=== PATIENT | female | born 1950 | race Caucasian/White ===

== ENCOUNTER → 2018-04-27 16:29 | Outpatient (CLI) | payer OTHER, SELFPAY ==
[2018-04-27 17:00] LABS: Bilirubin Negative (Negative); Blood Trace-intact (Negative); Clarity Clear; Glucose Negative (Negative); Ketones Negative (Negative); Leukocyte Esterase Trace (Negative); Nitrite Negative (Negative); Specific Gravity 1.025 (1.005-1.025); Urobilinogen 0.2 EU/dL (Up TO 0.2); pH 6.5 (5-8)
[2018-04-27 17:15] LABS: Bacteria Rare HPF (Negative); Casts Negative LPF (Negative); Crystals Negative HPF (Negative); Epithelial Cells Few HPF (Negative); Mucus Negative (Negative); Other Cells Few Transitional (Negative)
[2018-04-27 17:16] LABS: C & S Indicated? C&S Done As Ordered
== END ==
PROVIDERS: PCP Family Medicine; Visit Provider Nurse Practitioner Family
DX: R10.31 Right lower quadrant pain (principal); N13.5 Crossing vessel and stricture of ureter without hydronephrosis
CPT/HCPCS: 81003; 81015; 87086

== ENCOUNTER 2018-06-16 15:04 | Outpatient (REF) | payer OTHER, SELFPAY ==
[2018-06-16 20:43] LABS: HCT 35.7 % (36.0-46.0); HGB 11.7 g/dL (12.0-15.5); Mean Corp. HGB Concentration 32.8 g/dL (32.0-36.0); Mean Corpuscular Hemoglobin 32.8 pg (27.0-33.0); Mean Platelet Volume 10.3 fL (8.0-11.0); Platelet Count 287 x1000/uL (130-400); RBC 3.57 m/cumm (4.00-5.20); RBC Distribution Width 15.1 % (11.7-14.6); Reticulocyte 1.7 % (0.5-2.4)
[2018-06-16 21:03] LABS: Iron 48 ug/dL (50-175); Total Iron Binding Capacity 264 ug/dL (250-450); Transferrin Sat 18 % (15-50)
[2018-06-16 21:16] LABS: Ferritin 132 ng/mL (8-388)
== END 2018-06-16 15:24 ==
LOC: NCHCN 15:04
PROVIDERS: PCP Family Medicine; Visit Provider Family Medicine
DX: E61.1 Iron deficiency (principal)
CPT/HCPCS: 85027; 82728; 83540; 83550; 85045

== ENCOUNTER 2018-06-28 01:39 | Outpatient (RCR) | payer OTHER, SELFPAY ==
[2018-06-21] MEDS: SODIUM FER. GLUC./SUC. 125 MG in Normal Saline 100 ML 110 MG IVPB (11:27)
[2018-06-21] MEDS: Normal Saline Flush 10 ML SYR IVP (11:28)
[2018-06-28] MEDS: Normal Saline Flush 10 ML SYR IVP (10:24)
[2018-06-28] MEDS: SODIUM FER. GLUC./SUC. 125 MG in Normal Saline 100 ML 110 MG IVPB (10:24)
== END 2018-06-28 23:59 | disposition home or self-care (01) ==
LOC: INF 01:39
PROVIDERS: PCP Family Medicine; Visit Provider Internal Medicine
DX: D64.9 Anemia, unspecified (principal); E61.1 Iron deficiency
CPT/HCPCS: 96365; J3490

== ENCOUNTER 2018-07-05 01:32 | Outpatient (RCR) | payer OTHER, SELFPAY ==
[2018-07-05] MEDS: Normal Saline Flush 10 ML SYR IVP (10:31)
[2018-07-05] MEDS: SODIUM FER. GLUC./SUC. 125 MG in Normal Saline 100 ML 110 MG IVPB (10:31)
--- NOTE | 2018-07-05 11:55 | NUR.NOTE ---
Nursing Note: Pt with infiltration of Ferrilit towards end of infusion. Infusion discontinued. Site with swelling below iid site, a approx 3 small blisters above IID site. Pt reports no pain, no numbness or tingling. Pt was not aware that site was infiltrated. No redness or staining observed at site. Arm elevated and ice pack placed.
--- NOTE | 2018-07-05 12:15 | NUR.NOTE ---
PT HAS HAD ARM ELEVATED AND ICE APPLIED FOR ABOUT 45 MINS. PT CONTINUES TO DENY PAIN , NUMBNESS OR TINGLING. SITE HAS DECREASED IN EDEMA AND THE BLISTERS HAVE DECREASED. PT EDUCATED ON SYMPTOMS TO WATCH FOR AND WHEN TO SEEK MEDICAL CARE. ARM CIRCUMFRENCE ABOVE SITE 37 CM AND BELOW SITE 31 CM. RIGHT ARM FOR REFERENCE: UPPER 37CM LOWER 29 Nursing Note:
== END 2018-07-28 23:59 | disposition home or self-care (01) ==
LOC: INF 01:32
PROVIDERS: PCP Family Medicine
DX: D64.9 Anemia, unspecified (principal); E61.1 Iron deficiency
CPT/HCPCS: 96365; J3490

== ENCOUNTER 2018-09-04 00:16 | Outpatient (CLI) | payer OTHER, SELFPAY ==
--- NOTE | 2018-09-04 13:42 | DI.MAMMO_ITS ---
SYMPTOMS/DIAGNOSIS: PERSONAL H/O IN SITU NEOPLASM OF BREAST, Z86.000, BREAST CA, C50.919, SCREENING, Z12.31 MAMMOGRAM: Mammograms were interpreted according to the usual protocol including computer analysis with CAD system, tomosynthesis and C view imaging. Comparison with prior examinations. Breast density A. No suspicious masses or microcalcifications are seen. Post surgical changes are seen in the right breast. IMPRESSION: No evidence for malignancy. Yearly mammography is recommended. Category 2. The findings were discussed with the patient on the date of the examination. SA ASSESSMENT OF FINDINGS: Negative with benign findings. Category 2. Patient will receive a letter notifying them of these results. BI-RAD category A. The breasts are almost entirely fatty.
== END 2018-09-04 00:36 ==
PROVIDERS: PCP Family Medicine; Visit Provider Family Medicine
DX: C50.919 Malignant neoplasm of unspecified site of unspecified female breast (principal); Z12.31 Encounter for screening mammogram for malignant neoplasm of breast; Z98.890 Other specified postprocedural states
CPT/HCPCS: 77063; 77067

== ENCOUNTER 2018-10-09 18:08 | Emergency (ER) | payer OTHER, SELFPAY ==
[2018-10-09 18:13] VITALS: BP 205/80; PULSE 61; RESP 20; TEMP 36.8; O2SAT 97
--- NOTE | 2018-10-09 18:42 | DI.CT_ITS ---
SYMPTOM/DIAGNOSIS: LT MID/LLQ ABD PAIN, R/O DIVERTICULITIS VS SBO CT ABDOMEN AND PELVIS: Comparison examination is 11/05/16 The visualized lung bases are clear. The unenhanced liver, spleen, pancreas, gallbladder, bile ducts and adrenal glands are unremarkable. The patient is now status post right nephrectomy. There are fat density well circumscribed lesions in the region of the right renal fossa. These are likely post surgical. The left kidney is present. There is dilatation of the proximal renal collecting system to the level of what appears to be soft tissue in the retroperitoneum which may represent fibrosis. The ureter distally is of normal caliber. No filling defects are seen. There is soft tissue seen in the retroperitoneum extending from the level of the pelvic inlet inferiorly posterior to the rectum which likely represents fibrosis. There is mild thickening of the wall of the loops of small bowel in the left abdomen and an enteritis cannot be excluded. The remainder of the bowel shows no evidence of obstruction or inflammation. No findings to suggest an acute appendicitis are present. The aorta is of normal caliber. No significant abdominal or pelvic adenopathy, ascites or pneumoperitoneum is seen. Post surgical changes are seen in the subcutaneous tissues of the left abdominal wall. IMPRESSION: 1. Status post right nephrectomy. 2. Mild dilatation of the proximal left renal collecting system without evidence of stone. The dilatation appears to extend to the level of retroperitoneal fibrosis 3. Mild bowel wall thickening and loops of small bowel in the left abdomen and a mild enteritis should be considered.
--- NOTE | 2018-10-09 18:45 | ED.GENADUL_ITS ---
Discharge Plan Disposition Patient Disposition: HOME Condition: Stable Discharge Details Chief Complaint: Abd Prob Clinical Impression: Abdominal pain Primary Care Provider: Tory Puckett ED Provider: Cyn Flores Home Meds and New Rx's Prescriptions: New famotidine [Pepcid] 20 mg tablet 20 mg PO DAILY Qty: 14 RF: 0 No Action levothyroxine [Synthroid] 25 MCG tablet 50 mcg PO DAILY RF: 0 omeprazole 10 MG capsule,delayed release(DR/EC) 20 mg PO DAILY RF: 0 trazodone 150 MG tablet 150 mg PO DAILY RF: 0 polyethylene glycol 3350 [Miralax] 17 GM powder in packet 17 gm PO for colonscopy Qty: 1 RF: 0 clonidine HCl 0.1 MG tablet 0.1 mg PO HS RF: 0 methotrexate sodium (PF) 25 mg/mL Solution 50 mg IM QWEEK RF: 0 Baking Soda 1.2 tsp PO DAILY RF: 0 Discharge Instructions Instructions: Abdominal Pain (ED) Additional Instructions: Take Tylenol as needed and directed for pain. Take Pepcid daily as directed. Call your surgeon at [facility] tomorrow morning to schedule follow-up appointment for reevaluation for endoscopy if indicated for persistent pain worse with eating. Return immediately to the emergency department any worsening or new concerning symptoms. 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 Afebrile, normal heart rate. She has tenderness to palpation of her left lower quadrant, left mid and left upper quadrant area. Otherwise abdomen is soft, no rigidity or rebound. Differential diagnosis includes diverticulitis, small bowel obstruction, gastritis. He has no complaint of chest pain or shortness of breath and is mainly tender in the left lower quadrant extending up to left upper quadrant, so I do not see an indication for EKG or troponin. Will place an IV, labs, urinalysis, CT abdomen and give a dose of morphine and bolus IV fluids. 1930 --labs reviewed and note a normal white blood cell count, electrolytes. Creatinine 1.38, GFR 37, patient is on methotrexate, this is improved compared to previous. Will change from CT with IV contrast to oral contrast only. 2200 --CT negative for acute findings. It notes mild left hydronephrosis and proximal hydroureter likely due to the retroperitoneal fibrosis but no other acute findings. Urinalysis notes 0-2 WBCs and trace leukocyte esterase, urine culture sent. Patient feels better and feels good to go home. Patient states her pain was much worse here after drinking the oral contrast. She states in general the pain is worse with eating. This appears more consistent likely with an ulcer. She admits to improvement of pain now. Patient states she has seen surgery at [facility] in the past. She is also given referral for surgery here. She is instructed to call them for reevaluation for possible endoscopy. She is instructed return here with any concerns. Medical Records Medical records reviewed: Yes I reviewed the patient's medical records. Imaging Data Radiologic Study: Radiologist's impression: CT ABD PELVIS WO CONTRAST 11/05/2016 6:56 PM FINDINGS: Lower thorax: Bibasilar atelectasis. No consolidation. No pleural effusion. ABDOMEN: Liver: Unremarkable. No mass. Gallbladder and bile ducts: Unremarkable. No calcified stones. No ductal dilation. Pancreas: Unremarkable. No ductal dilation. Spleen: Unremarkable.No splenomegaly. Adrenals: Unremarkable. No mass. Kidneys and ureters: Mild left hydronephrosis and hydroureter to the L4-5 level where there is a band of retroperitoneal fibrosis. No stone or mass. Right nephrectomy. Nonspecific fat density masses with surrounding attenuation in the right retroperitoneal space (axial series 2 images 39, 47 and 57), presumably represent postsurgical changes. Stomach and bowel: Cecal and distal ileal adhesions back to the S1 level which is new since the nephrectomy and likely represents postsurgical adhesions. No evidence of bowel wall thickening, inflammation, obstruction or perforation. Appendix: No evidence of appendicitis. PELVIS: Bladder: Unremarkable as visualized. Reproductive: Unremarkable as visualized. ABDOMEN and PELVIS: Intraperitoneal space: No free air. No significant fluid collection. Bones/joints: No acute bony abnormality. Redemonstrated L4-5 posterior mechanical fusion with disc spacer. Soft tissues: Unremarkable. Vasculature: Mild aortoiliac wall calcifications. No abdominal aortic aneurysm. Lymph nodes: Unremarkable. No enlarged lymph nodes. IMPRESSION: 1. Mild left hydronephrosis and proximal hydroureter which appears to be due to the retroperitoneal fibrosis. 2. Right nephrectomy. Lab Data Lab results reviewed: Yes I reviewed the patient's lab results. 10/09/18 20:15 Urine - Reflex from Ua Urine Culture - Pending Laboratory Tests Range/Units 10/09/18 10/09/18 10/09/18 18:20 18:20 20:15 WBC (4.4-10.8) k/cumm 7.58 RBC (4.00-5.20) m/cumm 3.60 L Hgb (12.0-15.5) g/dL 11.9 L Hct (36.0-46.0) % 36.8 MCV (80-95) fL 102.2 H MCH (27.0-33.0) pg 33.1 H MCHC (32.0-36.0) g/dL 32.3 RDW (11.7-14.6) % 13.4 Plt Count (130-400) x1000/uL 313 MPV (8.0-11.0) fL 9.8 Immature Gran % 0.1 Neutrophils % 68.9 Lymphocytes % 24.4 Monocytes % 4.6 Eosinophils % 1.5 Basophils % 0.5 Absolute Neutrophils (1.2-6.7) k/cumm 5.22 Absolute Lymphocytes (1.2-3.4) k/cumm 1.85 Absolute Monocytes (0.11-0.7) k/cumm 0.35 Absolute Eosinophils (0.0-0.7) k/cumm 0.11 Absolute Basophils (0.0-0.2) k/cumm 0.04 Sodium (136-145) mmol/L 140 Potassium (3.5-5.1) mmol/L 3.9 Chloride (98-107) mmol/L 101 Carbon Dioxide (21.0-32.0) mmol/L 28.4 Anion Gap (3-11) mmol/L 10.6 BUN (7-18) mg/dL 18 Creatinine (0.55-1.02) mg/dL 1.38 H Estimated GFR/1.73 m2 (mL/min/1.73m2) 37.91 Glucose (70-100) mg/dL 89 Calcium (8.5-10.1) mg/dL 9.7 Total Bilirubin (0.2-1.0) mg/dL 0.4 AST (15-37) U/L 13 L ALT (12-78) U/L 15 Alkaline Phosphatase (46-116) U/L 79 Total Protein (6.4-8.2) g/dL 8.3 H Albumin (3.4-5.0) g/dL 3.9 Lipase (73-393) U/L 69 L Urine Color (Yellow) Yellow Urine Clarity Clear Urine pH (5-8) 7.5 Ur Specific Marshall (1.005-1.025) 1.010 Urine Protein (Negative) mg/dL Negative Urine Ketones (Negative) mg/dL Negative Urine Blood (Negative) Negative Urine Nitrite (Negative) Negative Urine Bilirubin (Negative) Negative Urine Urobilinogen (Up TO 0.2) EU/dL 0.2 Ur Leukocyte Esterase (Negative) Trace H Urine RBC (0-2) Negative Urine WBC (0-5) HPF 0-2 Ur Epithelial Cells (Negative) HPF Negative Urine Crystals Not Applicable Urine Bacteria (Negative) HPF Negative Urine Mucus Not Applicable Ur Culture Indicated? Yes Urine Glucose (Negative) mg/dL Negative HPI General Mode of arrival: ambulatory . Date/Time Provider Initiated Documentation: 10/09/18 18:19 . Limitations to Documentation: no limitations . Information obtained by: patient . HPI Narrative: Patient is a 68-year-old female who presents to the ED with a complaint of left lower quadrant abdominal pain for the past 4 days. Patient states the pain is intermittent, twisting, 10/10 at its worst and currently 4/10. She denies any radiation of pain. She states the pain is worse with coffee or food but better with nothing. She admits to some nausea but denies any vomiting, diarrhea, urinary symptoms, chest pain, shortness of breath, recent travel, recent antibiotics or sick contacts. She states she has a history of chronic constipation and that her last bowel movement was yesterday and small denies any bleeding. Patient was seen at the primary care doctor's office prior to this today and was sent here for evaluation for possible diverticulitis. Related Data Home Medications Medication Instructions Recorded Confirmed levothyroxine [Synthroid] 50 mcg PO DAILY tab-cap 11/01/16 10/09/18 omeprazole 20 mg PO DAILY tab-cap 11/01/16 10/09/18 trazodone 150 mg PO DAILY tab-cap 11/01/16 10/09/18 polyethylene glycol 3350 [Miralax] 17 gm PO for colonscopy #1 gm 11/02/16 10/09/18 clonidine HCl 0.1 mg PO HS 03/10/17 10/09/18 Baking Soda 1.2 tsp PO DAILY 10/09/18 10/09/18 famotidine [Pepcid] 20 mg PO DAILY #14 tab 10/09/18 methotrexate sodium (PF) 50 mg IM QWEEK 10/09/18 10/09/18 Previous Rx's Medication Instructions Recorded famotidine [Pepcid] 20 mg PO DAILY #14 tab 10/09/18 Allergies Allergy/AdvReac Type Severity Reaction Status Date / Time erythromycin base Allergy Intermediate facial Unverified 10/09/18 18:16 swelling tetracycline Allergy Intermediate facial Unverified 10/09/18 18:16 swelling oxycodone AdvReac Nausea Unverified 10/09/18 18:16 General Stated Complaint: Abd Prob MAKAYLA: 3 Review of Systems Review of Systems All systems reviewed & are unremarkable except as noted in HPI and below Constitutional Reports as per HPI, Denies chills and Denies fever(s) Eyes Denies blurry vision ENT Denies dizziness, Denies sore throat and Denies throat swelling Cardiovascular Denies chest pain and Denies dyspnea Respiratory Denies cough and Denies dyspnea Gastrointestinal Reports abdominal pain, Reports constipation, Denies diarrhea, Reports nausea and Denies vomiting Genitourinary Denies hematuria and Denies dysuria Musculoskeletal Denies back pain and Denies numbness Integumentary/Breasts Denies lesions and Denies rash Neurologic Denies dizziness, Denies focal weakness and Denies numbness Allergic/Immunologic Denies throat swelling [facility] Medical History Retroperitoneal fibrosis (Acute) Breast cancer Constipation HTN (hypertension) Hypothyroidism Surgical History History of back surgery (Acute) History of nephrectomy (Acute) section Extraction of cataract Hx of mastectomy low back fusion right breast removed Family History Brother Colon cancer Grandmother No problems noted. Social History Smoking and Tabacco status: Never alcohol intake: never substance use type: does not use Exam Const General: cooperative, healthy appearing and no acute distress HENMT Head: normal to inspection Face and sinus: normal facial exam Eyes General: appearance normal, both eyes and all related structures EOM: EOM intact bilaterally Neck Neck: normal visual inspection and No submandibular swelling Lymphatic: no lymphadenopathy noted Chest Chest: normal inspection of the chest and no tenderness Resp Effort & Inspection: normal respiratory effort and able to speak in complete sentences Auscultation: clear to auscultation bilaterally Cardio Rate: regular rate Rhythm: regular rhythm GI Inspection: normal to inspection Palpation: soft, not firm, not rigid and tender (LLQ>L mid abdomen> LUQ) Auscultation: normal bowel sounds Back/Spine/Pelvis Back: no CVA tenderness Skin General skin exam: no rashes or lesions noted Neuro General: alert, awake and oriented x3 Cognition: normal cognition Speech: speech normal Motor: muscle tone normal throughout Sensory Exam: no sensory deficits noted Extrem General: normal to inspection, full ROM, normal capillary refill, no calf tenderness bilaterally and no edema Psych Appearance: grossly normal Mental Status: mental status grossly normal Speech and Movement: speech and movement normal Affect: normal affect Course Vital Signs Temperature 98.2 F 10/09/18 18:13 Pulse 61 10/09/18 18:13 Respiratory Rate 20 10/09/18 18:13 Blood Pressure 205/80 H 10/09/18 18:13 Pulse Oximetry 97 10/09/18 18:13 Temperature 98.2 F 10/09/18 18:13 Temperature Source Temporal Artery Scan 10/09/18 18:13 Pulse 61 10/09/18 18:13 Respiratory Rate 20 10/09/18 18:13 Blood Pressure 205/80 H 10/09/18 18:13 Pulse Oximetry 97 10/09/18 18:13 Pain Level 5 10/09/18 18:25
[2018-10-09 19:08] LABS: Abs Immature Grans 0.01 k/cumm (0.0-0.09); Absolute Basophil Count 0.04 k/cumm (0.0-0.2); Absolute Eosinophil Count 0.11 k/cumm (0.0-0.7); Absolute Lymphocyte Count 1.85 k/cumm (1.2-3.4); Absolute Monocyte Count 0.35 k/cumm (0.11-0.7); Absolute Neutrophil Count 5.22 k/cumm (1.2-6.7); Basophils % 0.5; Eosinophils % 1.5; HCT 36.8 % (36.0-46.0); HGB 11.9 g/dL (12.0-15.5); Immature Grans % 0.1; Lymphocytes % 24.4; Mean Corp. HGB Concentration 32.3 g/dL (32.0-36.0); Mean Corpuscular Hemoglobin 33.1 pg (27.0-33.0); Mean Corpuscular Volume 102.2 fL (80-95); Mean Platelet Volume 9.8 fL (8.0-11.0); Monocytes % 4.6; Neutrophils % 68.9; Platelet Count 313 x1000/uL (130-400); RBC Distribution Width 13.4 % (11.7-14.6); White Blood Cell Count 7.58 k/cumm (4.4-10.8)
[2018-10-09 19:20] LABS: ALT 15 U/L (12-78); AST 13 U/L (15-37); Albumin 3.9 g/dL (3.4-5.0); Alkaline Phosphatase 79 U/L (46-116); Anion Gap 10.6 mmol/L (3-11); BUN 18 mg/dL (7-18); Bilirubin, Total 0.4 mg/dL (0.2-1.0); CO2 28.4 mmol/L (21.0-32.0); CREATININE 1.38 mg/dL (0.55-1.02); Chloride 101 mmol/L (98-107); Estimated GFR 37.91 (mL/min/1.73m2); Glucose 89 mg/dL (70-100); Lipase 69 U/L (73-393); Potassium 3.9 mmol/L (3.5-5.1); Sodium 140 mmol/L (136-145); Total Protein 8.3 g/dL (6.4-8.2)
[2018-10-09 19:28] LABS: Calcium 9.7 mg/dL (8.5-10.1)
[2018-10-09] MEDS: Normal Saline 1,000 ML 1000 ML IV (19:28)
[2018-10-09] MEDS: MORPHine 10 MG/ML VIAL 2 MG IVP (19:28)
[2018-10-09] MEDS: MORPHine 10 MG/ML VIAL 4 MG IVP (20:08)
[2018-10-09] MEDS: Breeza Beverage 473 ML BTL PO ×2 (20:47→20:48)
[2018-10-09] MEDS: HYDROmorphone 2 MG/ML VIAL 0.5 MG IV (20:47)
[2018-10-09] MEDS: Omnipaque 350 MG/ML 50 ML BTL PO (20:48)
[2018-10-09] MEDS: FAMOTIDINE 20 MG/50 ML BAG 200 MG IVPB (21:30)
--- NOTE | 2018-10-09 21:48 | DI.VRAD_ITS ---
EXAM: CT Abdomen and Pelvis Without Contrast EXAM DATE/TIME: 10/09/2018 7:38 PM CLINICAL HISTORY: 68 years old, female; Pain; Abdominal pain; Generalized; Prior surgery; Surgery date: 6+ months; Surgery type: Mastectomy 15 years ago, back surgery 5 years ago, r nephrectomy 06/2018; Patient HX: Severe cramping and abdominal pain, HX of retroperitoneal fibrosis TECHNIQUE: Axial computed tomography images of the abdomen and pelvis without contrast. All CT scans at this facility use at least one of these dose optimization techniques: automated exposure control; mA and/or kV adjustment per patient size (includes targeted exams where dose is matched to clinical indication); or iterative reconstruction. Coronal and sagittal reformatted images were created and reviewed. COMPARISON: CT ABD PELVIS WO CONTRAST 11/05/2016 6:56 PM FINDINGS: Lower thorax: Bibasilar atelectasis. No consolidation. No pleural effusion. ABDOMEN: Liver: Unremarkable. No mass. Gallbladder and bile ducts: Unremarkable. No calcified stones. No ductal dilation. Pancreas: Unremarkable. No ductal dilation. Spleen: Unremarkable.No splenomegaly. Adrenals: Unremarkable. No mass. Kidneys and ureters: Mild left hydronephrosis and hydroureter to the L4-5 level where there is a band of retroperitoneal fibrosis. No stone or mass. Right nephrectomy. Nonspecific fat density masses with surrounding attenuation in the right retroperitoneal space (axial series 2 images 39, 47 and 57), presumably represent postsurgical changes. Stomach and bowel: Cecal and distal ileal adhesions back to the S1 level which is new since the nephrectomy and likely represents postsurgical adhesions. No evidence of bowel wall thickening, inflammation, obstruction or perforation. Appendix: No evidence of appendicitis. PELVIS: Bladder: Unremarkable as visualized. Reproductive: Unremarkable as visualized. ABDOMEN and PELVIS: Intraperitoneal space: No free air. No significant fluid collection. Bones/joints: No acute bony abnormality. Redemonstrated L4-5 posterior mechanical fusion with disc spacer. Soft tissues: Unremarkable. Vasculature: Mild aortoiliac wall calcifications. No abdominal aortic aneurysm. Lymph nodes: Unremarkable. No enlarged lymph nodes. IMPRESSION: 1. Mild left hydronephrosis and proximal hydroureter which appears to be due to the retroperitoneal fibrosis. 2. Right nephrectomy. Dictated and Authenticated by: Veronica Michelle MD. Ordering:LOLA Addison MD
[2018-10-09 22:01] LABS: Bilirubin Negative (Negative); Blood Negative (Negative); Clarity Clear; Glucose Negative (Negative); Ketones Negative (Negative); Leukocyte Esterase Trace (Negative); Nitrite Negative (Negative); Urobilinogen 0.2 EU/dL (Up TO 0.2); pH 7.5 (5-8)
[2018-10-09 22:16] LABS: Bacteria Negative HPF (Negative); C & S Indicated? Yes; Epithelial Cells Negative HPF (Negative); RBC Negative (0-2); WBC 0-2 HPF (0-5)
== END 2018-10-09 22:50 | disposition home or self-care (01) ==
PROVIDERS: Emergency Provider Physician Assistant; PCP Family Medicine
DX: R10.32 Left lower quadrant pain (principal); N13.39 Other hydronephrosis; N13.4 Hydroureter; Z90.5 Acquired absence of kidney
CPT/HCPCS: 80053; 83690; 96361; 96365; 96375; 96376; 99285; 74176; 81003; 81015; 85025; 87086; 99284; J2270; Q9967

== ENCOUNTER 2018-10-30 15:15 | Outpatient (CLI) | payer OTHER, SELFPAY ==
[2018-10-30 15:34] LABS: Abs Immature Grans 0.01 k/cumm (0.0-0.09); Absolute Basophil Count 0.05 k/cumm (0.0-0.2); Absolute Eosinophil Count 0.07 k/cumm (0.0-0.7); Absolute Lymphocyte Count 1.64 k/cumm (1.2-3.4); Absolute Neutrophil Count 5.54 k/cumm (1.2-6.7); Basophils % 0.7; Eosinophils % 0.9; HCT 35.2 % (36.0-46.0); HGB 11.9 g/dL (12.0-15.5); Immature Grans % 0.1; Lymphocytes % 21.8; Mean Corp. HGB Concentration 33.8 g/dL (32.0-36.0); Mean Corpuscular Hemoglobin 33.8 pg (27.0-33.0); Mean Platelet Volume 9.3 fL (8.0-11.0); Monocytes % 2.7; Neutrophils % 73.8; Platelet Count 282 x1000/uL (130-400); RBC 3.52 m/cumm (4.00-5.20); RBC Distribution Width 13.4 % (11.7-14.6); White Blood Cell Count 7.51 k/cumm (4.4-10.8)
[2018-10-30 16:42] LABS: ESR 61 MM/HR (0-30)
[2018-10-30 16:49] LABS: ALT 16 U/L (12-78); AST 18 U/L (15-37); Alkaline Phosphatase 90 U/L (46-116); Anion Gap 10.2 mmol/L (3-11); BUN 24 mg/dL (7-18); Bilirubin, Total 0.4 mg/dL (0.2-1.0); C-Reactive Protein 1.96 mg/dL (0.0-0.3); CO2 26.8 mmol/L (21.0-32.0); CREATININE 1.43 mg/dL (0.55-1.02); Calcium 9.1 mg/dL (8.5-10.1); Chloride 102 mmol/L (98-107); Estimated GFR 36.38 (mL/min/1.73m2); Glucose 89 mg/dL (70-100); Potassium 4.4 mmol/L (3.5-5.1); Sodium 139 mmol/L (136-145); Total Protein 7.4 g/dL (6.4-8.2)
== END 2018-10-30 15:35 ==
PROVIDERS: PCP Family Medicine; Visit Provider Internal Medicine Rheumatology
DX: N13.5 Crossing vessel and stricture of ureter without hydronephrosis (principal); N18.3 Chronic kidney disease, stage 3 (moderate); M35.00 Sjogren syndrome, unspecified
CPT/HCPCS: 36415; 80053; 85652; 85025; 86140

== ENCOUNTER 2019-03-16 10:10 | Outpatient (CLI) | payer OTHER, SELFPAY ==
[2019-03-16 13:06] LABS: Albumin 4.1 g/dL (3.4-5.0); Anion Gap 13.3 mmol/L (3-11); BUN 24 mg/dL (7-18); CO2 21.7 mmol/L (21.0-32.0); CREATININE 1.67 mg/dL (0.55-1.02); Calcium 9.3 mg/dL (8.5-10.1); Chloride 103 mmol/L (98-107); Estimated GFR 30.42 (mL/min/1.73m2); Glucose 88 mg/dL (70-100); PHOSPHORUS 3.6 mg/dL (2.6-4.7); Potassium 4.7 mmol/L (3.5-5.1); Sodium 138 mmol/L (136-145)
== END 2019-03-16 10:30 ==
PROVIDERS: PCP Family Medicine; Visit Provider Internal Medicine Rheumatology
DX: N13.5 Crossing vessel and stricture of ureter without hydronephrosis (principal); M35.00 Sjogren syndrome, unspecified
CPT/HCPCS: 36415; 80069

== ENCOUNTER 2019-10-10 14:10 | Outpatient (REF) | payer OTHER, SELFPAY ==
[2019-10-10 21:51] LABS: HCT 37.6 % (36.0-46.0); HGB 12.7 g/dL (12.0-15.5); Mean Corp. HGB Concentration 33.8 g/dL (32.0-36.0); Mean Corpuscular Hemoglobin 34.1 pg (27.0-33.0); Mean Corpuscular Volume 101.1 fL (80-95); Mean Platelet Volume 9.5 fL (8.0-11.0); Platelet Count 352 x1000/uL (130-400); RBC 3.72 m/cumm (4.00-5.20); RBC Distribution Width 15.4 % (11.7-14.6); White Blood Cell Count 13.48 k/cumm (4.4-10.8)
[2019-10-10 22:06] LABS: ALT 22 U/L (14-59); AST 18 U/L (15-37); Alkaline Phosphatase 64 U/L (46-116); Anion Gap 17.6 mmol/L (3-11); BUN 24 mg/dL (7-18); Bilirubin, Total 0.4 mg/dL (0.2-1.0); C-Reactive Protein 1.82 mg/dL (0.0-0.3); CO2 19.4 mmol/L (21.0-32.0); CREATININE 1.58 mg/dL (0.55-1.02); Calcium 8.9 mg/dL (8.5-10.1); Chloride 103 mmol/L (98-107); Estimated GFR 32.33 (mL/min/1.73m2); Glucose 118 mg/dL (74-106); NT-proBNP 307 pg/mL (<300); Potassium 4.2 mmol/L (3.5-5.1); Sodium 140 mmol/L (136-145); Total Protein 7.5 g/dL (6.4-8.2)
[2019-10-10 22:27] LABS: ESR 43 mm/hr (0-30)
[2019-10-11 08:30] LABS: Abs Immature Grans 0.18 k/cumm (0.0-0.09); Absolute Basophil Count 0.02 k/cumm (0.0-0.2); Absolute Lymphocyte Count 1.06 k/cumm (1.2-3.4); Absolute Monocyte Count 0.18 k/cumm (0.11-0.7); Absolute Neutrophil Count 12.07 k/cumm (1.2-6.7); Basophils % 0.1; Immature Grans % 1.3 %; Lymphocytes % 7.8; Monocytes % 1.3; Neutrophils % 89.5
== END 2019-10-10 14:30 ==
LOC: NCHCN 14:10
PROVIDERS: PCP Family Medicine; Visit Provider Family Medicine
DX: E61.1 Iron deficiency (principal); N13.5 Crossing vessel and stricture of ureter without hydronephrosis; R06.02 Shortness of breath; R06.2 Wheezing; J06.9 Acute upper respiratory infection, unspecified
CPT/HCPCS: 80053; 85027; 85652; 83880; 85007; 86140

== ENCOUNTER 2019-10-18 00:38 | Outpatient (CLI) | payer OTHER, SELFPAY ==
--- NOTE | 2019-10-18 | DI.MAMMO_ITS ---
EXAM: MG MAMMO SCREENING 60 MIN DUR CLINICAL HISTORY: PERSONAL H/O BREAST CA, Z86.00, SCREENING TECHNIQUE: Mammograms were interpreted according to the usual protocol including computer analysis w [employer] CAD system, tomosynthesis and C-view imaging. COMPARISON: 2016 through 2018. FINDINGS: The breasts are composed of mainly fatty density , Breast Density category A. The patient is status p ost right breast reconstructive surgery. A vascular clip as well as a coarse calcification are again noted. No suspicious masses or suspicious microcalcifications are seen. No skin thickening or abnormal axillary lymph nodes are seen. There has been no significant change from prior exams. IMPRESSION: BIRADS Category 2, negative mammogram with benign findings. Yearly screening mammography is recommen ded. Breast density category A.
== END 2019-10-18 00:58 ==
PROVIDERS: PCP Family Medicine; Visit Provider Family Medicine
DX: Z85.3 Personal history of malignant neoplasm of breast (principal); Z90.11 Acquired absence of right breast and nipple; Z12.31 Encounter for screening mammogram for malignant neoplasm of breast
CPT/HCPCS: 77063; 77067

== ENCOUNTER 2019-11-05 12:32 | Outpatient (CLI) | payer OTHER, SELFPAY ==
[2019-11-05 14:24] LABS: Abs Immature Grans 0.06 k/cumm (0.0-0.09); Absolute Basophil Count 0.01 k/cumm (0.0-0.2); Absolute Lymphocyte Count 0.59 k/cumm (1.2-3.4); Absolute Monocyte Count 0.25 k/cumm (0.11-0.7); Basophils % 0.1; ESR 9 mm/hr (0-30); HCT 38.6 % (36.0-46.0); Immature Grans % 0.5 %; Lymphocytes % 4.6; Mean Corp. HGB Concentration 33.7 g/dL (32.0-36.0); Mean Corpuscular Hemoglobin 34.4 pg (27.0-33.0); Mean Corpuscular Volume 102.1 fL (80-95); Mean Platelet Volume 9.5 fL (8.0-11.0); Neutrophils % 92.8; Platelet Count 267 x1000/uL (130-400); RBC 3.78 m/cumm (4.00-5.20); RBC Distribution Width 15.8 % (11.7-14.6); White Blood Cell Count 12.72 k/cumm (4.4-10.8)
[2019-11-05 14:41] LABS: ALT 24 U/L (14-59); AST 14 U/L (15-37); Albumin 3.7 g/dL (3.4-5.0); Alkaline Phosphatase 54 U/L (46-116); Anion Gap 13.9 mmol/L (3-11); BUN 46 mg/dL (7-18); Bilirubin, Total 0.4 mg/dL (0.2-1.0); C-Reactive Protein 0.06 mg/dL (0.0-0.3); CO2 21.1 mmol/L (21.0-32.0); CREATININE 1.94 mg/dL (0.55-1.02); Calcium 8.8 mg/dL (8.5-10.1); Chloride 101 mmol/L (98-107); Estimated GFR 25.51 (mL/min/1.73m2); Glucose 112 mg/dL (74-106); Potassium 4.4 mmol/L (3.5-5.1); Sodium 136 mmol/L (136-145); Total Protein 6.6 g/dL (6.4-8.2)
== END 2019-11-05 12:52 ==
PROVIDERS: PCP Family Medicine; Visit Provider Internal Medicine Rheumatology
DX: M35.00 Sjogren syndrome, unspecified (principal); N13.5 Crossing vessel and stricture of ureter without hydronephrosis; Z79.899 Other long term (current) drug therapy
CPT/HCPCS: 36415; 80053; 85652; 85025; 86140

== ENCOUNTER 2019-11-23 14:22 | Outpatient (REF) | payer OTHER, SELFPAY ==
[2019-11-26 10:52] LABS: HSV 1 DNA Result Negative (Negative); HSV 2 DNA Result Positive (Negative)
== END 2019-11-23 14:42 ==
LOC: NCHCN 14:22
PROVIDERS: PCP Family Medicine; Visit Provider Nurse Practitioner Family
DX: Z11.59 Encounter for screening for other viral diseases (principal)
CPT/HCPCS: 87529

== ENCOUNTER 2019-11-29 02:25 | Outpatient (CLI) | payer OTHER, SELFPAY ==
[2019-11-29 17:02] LABS: Bilirubin Negative (Negative); Blood Trace-intact (Negative); Clarity Clear (Clear); Glucose Negative (Negative); Ketones Negative (Negative); Leukocyte Esterase Small (Negative); Nitrite Negative (Negative); Urobilinogen 0.2 EU/dL (Up TO 0.2); pH 6.5 (5-8)
[2019-11-29 17:17] LABS: Bacteria Negative HPF (Negative); C & S Indicated? Yes; Casts Negative LPF (Negative); Crystals Negative HPF (Negative); Epithelial Cells Rare HPF (Negative); Mucus Negative (Negative); Other Cells Rare Renal (Negative); RBC Negative HPF (0-2)
[2019-11-29 18:37] LABS: ALT 27 U/L (14-59); AST 18 U/L (15-37); Albumin 3.7 g/dL (3.4-5.0); Alkaline Phosphatase 52 U/L (46-116); Anion Gap 12.8 mmol/L (3-11); BUN 33 mg/dL (7-18); Bilirubin, Total 0.4 mg/dL (0.2-1.0); CO2 21.2 mmol/L (21.0-32.0); CREATININE 1.54 mg/dL (0.55-1.02); Calcium 8.9 mg/dL (8.5-10.1); Chloride 102 mmol/L (98-107); Glucose 117 mg/dL (74-106); Potassium 4.6 mmol/L (3.5-5.1); Sodium 136 mmol/L (136-145); TSH 1.26 uIU/mL (0.36-3.74); Total Protein 7.1 g/dL (6.4-8.2)
== END 2019-11-29 02:45 ==
PROVIDERS: PCP Family Medicine; Visit Provider Internal Medicine Rheumatology
DX: N13.30 Unspecified hydronephrosis (principal); N26.1 Atrophy of kidney (terminal); N18.3 Chronic kidney disease, stage 3 (moderate); Z79.899 Other long term (current) drug therapy
CPT/HCPCS: 36415; 80053; 81003; 81015; 84443; 87086

== ENCOUNTER 2019-12-18 00:56 | Outpatient (RCR) | payer OTHER, SELFPAY ==
[2019-12-18] VITALS (9 sets, daily range): BP systolic 113–144; BP diastolic 69–85; PULSE 103–123; RESP 18–21; TEMP 35.7–37.2; O2SAT 94–99
[2019-12-18] MEDS: Normal Saline Flush 10 ML SYR IVP (09:13)
[2019-12-18] MEDS: methylPREDNISolone SUCC 125 MG VIAL 100 MG IVP (09:14)
[2019-12-18] MEDS: Loratidine 10 MG TAB PO (09:14)
== END 2019-12-27 23:59 | disposition home or self-care (01) ==
LOC: INF 00:56
PROVIDERS: PCP Family Medicine; Visit Provider Internal Medicine
DX: N13.5 Crossing vessel and stricture of ureter without hydronephrosis (principal); R06.02 Shortness of breath; R00.0 Tachycardia, unspecified; M35.09 Sjogren syndrome with other organ involvement
CPT/HCPCS: 96365; 96366; J2930; J9312

== ENCOUNTER 2019-12-20 13:40 | Outpatient (REF) | payer OTHER, SELFPAY ==
[2019-12-20 20:09] LABS: HCT 32.2 % (36.0-46.0); HGB 10.6 g/dL (12.0-15.5); Mean Corp. HGB Concentration 32.9 g/dL (32.0-36.0); Mean Corpuscular Hemoglobin 34.6 pg (27.0-33.0); Mean Corpuscular Volume 105.2 fL (80-95); Mean Platelet Volume 9.4 fL (8.0-11.0); Platelet Count 339 x1000/uL (130-400); RBC 3.06 m/cumm (4.00-5.20); RBC Distribution Width 15.1 % (11.7-14.6); White Blood Cell Count 11.46 k/cumm (4.4-10.8)
[2019-12-20 20:42] LABS: ALT 23 U/L (14-59); AST 17 U/L (15-37); Albumin 3.5 g/dL (3.4-5.0); Alkaline Phosphatase 54 U/L (46-116); Anion Gap 11.7 mmol/L (3-11); BUN 32 mg/dL (7-18); Bilirubin, Total 0.4 mg/dL (0.2-1.0); CO2 22.3 mmol/L (21.0-32.0); CREATININE 1.38 mg/dL (0.55-1.02); Calcium 8.8 mg/dL (8.5-10.1); Chloride 98 mmol/L (98-107); Glucose 105 mg/dL (74-106); Potassium 4.3 mmol/L (3.5-5.1); Sodium 132 mmol/L (136-145); Total Protein 6.8 g/dL (6.4-8.2)
[2019-12-20 20:59] LABS: ESR 73 mm/hr (0-30)
[2019-12-21 15:49] LABS: C-Reactive Protein 4.88 mg/dL (0.0-0.3)
== END 2019-12-20 14:00 ==
LOC: NCHCN 13:40
PROVIDERS: PCP Family Medicine; Visit Provider Family Medicine
DX: I10 Essential (primary) hypertension (principal); E61.1 Iron deficiency; M35.00 Sjogren syndrome, unspecified; Z79.899 Other long term (current) drug therapy
CPT/HCPCS: 80053; 85027; 85652; 86140

== ENCOUNTER 2020-01-02 01:45 | Outpatient (RCR) | payer OTHER, SELFPAY ==
[2020-01-02] MEDS: Loratidine 10 MG TAB PO (08:40)
[2020-01-02 08:58] VITALS: BP 130/84; PULSE 106; RESP 18; TEMP 36; O2SAT 96
[2020-01-02 09:16] VITALS: BP 123/81; PULSE 103; RESP 18; TEMP 36; O2SAT 95
[2020-01-02] MEDS: Normal Saline Flush 10 ML SYR IVP (09:17)
[2020-01-02 09:33] LABS: Abs Immature Grans 0.33 k/cumm (0.0-0.09); HCT 33.8 % (36.0-46.0); HGB 10.9 g/dL (12.0-15.5); Mean Corp. HGB Concentration 32.2 g/dL (32.0-36.0); Mean Corpuscular Hemoglobin 34.3 pg (27.0-33.0); Mean Corpuscular Volume 106.3 fL (80-95); Platelet Count 355 x1000/uL (130-400); RBC 3.18 m/cumm (4.00-5.20); RBC Distribution Width 15.9 % (11.7-14.6); Reticulocyte 5.4 % (0.5-2.4); White Blood Cell Count 11.33 k/cumm (4.4-10.8)
[2020-01-02 09:46] VITALS: BP 122/82; PULSE 107; RESP 18; TEMP 36.2; O2SAT 97
[2020-01-02 09:52] LABS: Absolute Eosinophil Count 0.11 k/cumm (0.0-0.7); Absolute Lymphocyte Count 0.68 k/cumm (1.2-3.4); Absolute Monocyte Count 1.02 k/cumm (0.11-0.7); Absolute Neutrophil Count 9.29 k/cumm (1.2-6.7); Atypical Lymphocytes % 1; Diff Comment Manual Differential; Macrocytosis 3+; Polychromasia Present
[2020-01-02 10:13] LABS: ALT 24 U/L (14-59); AST 13 U/L (15-37); Albumin 3.3 g/dL (3.4-5.0); Alkaline Phosphatase 62 U/L (46-116); Anion Gap 13.7 mmol/L (3-11); BUN 24 mg/dL (7-18); Bilirubin, Total 0.3 mg/dL (0.2-1.0); CO2 23.3 mmol/L (21.0-32.0); CREATININE 1.58 mg/dL (0.55-1.02); Calcium 9.3 mg/dL (8.5-10.1); Chloride 102 mmol/L (98-107); Estimated GFR 32.33 (mL/min/1.73m2); Ferritin 305 ng/mL (8-252); Glucose 143 mg/dL (74-106); Potassium 3.3 mmol/L (3.5-5.1); Sodium 139 mmol/L (136-145); TSH 2.33 uIU/mL (0.36-3.74); Total Protein 6.9 g/dL (6.4-8.2); Vitamin B12 215 pg/mL (193-986)
[2020-01-02 10:16] VITALS: BP 136/90; PULSE 100; RESP 18; TEMP 36.2; O2SAT 95
[2020-01-02 10:16] LABS: Folate > 20.0 ng/mL (8.6-20.0)
[2020-01-02 10:46] VITALS: BP 135/88; PULSE 103; RESP 19; TEMP 36.1; O2SAT 93
[2020-01-02 11:03] LABS: Bilirubin Negative (Negative); Blood Negative (Negative); Clarity Clear (Clear); Glucose Negative (Negative); Ketones Negative (Negative); Leukocyte Esterase Trace (Negative); Nitrite Negative (Negative); Urobilinogen 0.2 EU/dL (Up TO 0.2)
[2020-01-02 11:13] LABS: Bacteria Rare HPF (Negative); Epithelial Cells Few HPF (Negative); Other Cells Few Renal (Negative); RBC 0-2 HPF (0-2)
[2020-01-02 11:14] LABS: C & S Indicated? Yes; Casts Negative LPF (Negative); Crystals Other HPF (Negative); Mucus Negative (Negative)
[2020-01-02 13:43] LABS: Iron 42 ug/dL (50-170); Total Iron Binding Capacity 253 ug/dL (250-450); Transferrin Sat 17 % (15-50)
[2020-01-04 15:12] LABS: Albumin 57.1 % (55.8-66.1); Total Protein 6.5 g/dL (6.3-8.2)
== END 2020-01-27 23:59 | disposition home or self-care (01) ==
LOC: INF 01:45
PROVIDERS: Internal Medicine Rheumatology; PCP Family Medicine; Visit Provider Internal Medicine
DX: M35.09 Sjogren syndrome with other organ involvement; N13.5 Crossing vessel and stricture of ureter without hydronephrosis; N18.3 Chronic kidney disease, stage 3 (moderate); N26.1 Atrophy of kidney (terminal); Z79.899 Other long term (current) drug therapy
CPT/HCPCS: 36415; 80053; 96365; 96366; 81003; 81015; 82607; 82728; 82746; 83540; 83550; 84165; 84443; 85025; 85045; 87086; J9312

== ENCOUNTER 2020-01-02 11:09 | Outpatient (CLI) | payer OTHER, SELFPAY ==
--- NOTE | 2020-01-02 13:07 | DI.RAD_ITS ---
EXAM: XR CHEST 2V PA LATERAL CLINICAL HISTORY: DYSPNEA,H/O PLEURAL EFFUSION, ASSESS FOR WORSENING PULMONARY DISEASE TECHNIQUE: 2D digital imaging was performed. COMPARISON: CT ABDOMEN PELVIS WO from 10/09/2018 FINDINGS: MEDIASTINUM: Normal. HEART: Normal. PULMONARY VASCULATURE: Normal. LUNGS: Clear. No visible emphysematous or fibrotic changes. PLEURAL SPACE: No pleural effusion or pneumothorax. BONE:Mild degenerative changes in the thoracic spine.. IMPRESSION: No acute pulmonary findings. DATA REPOSITORY: RADIATION DOSE DELIVERED:
== END 2020-01-02 11:29 ==
PROVIDERS: PCP Family Medicine; Visit Provider Internal Medicine Rheumatology
DX: R06.09 Other forms of dyspnea (principal); Z87.09 Personal history of other diseases of the respiratory system
CPT/HCPCS: 71046

== ENCOUNTER 2020-06-27 04:01 | Outpatient (RCR) | payer OTHER, SELFPAY ==
[2020-06-27] VITALS (11 sets, daily range): BP systolic 109–140; BP diastolic 65–85; PULSE 71–87; RESP 16–18; TEMP 36.4–36.7; O2SAT 93–97
[2020-06-27] MEDS: Normal Saline Flush 10 ML SYR IVP (09:39)
== END 2020-06-28 23:59 | disposition home or self-care (01) ==
LOC: INF 04:01
PROVIDERS: PCP Family Medicine; Visit Provider Nurse Practitioner Family
DX: N13.5 Crossing vessel and stricture of ureter without hydronephrosis (principal); M35.09 Sjogren syndrome with other organ involvement
CPT/HCPCS: 96365; 96366; 96413; 96415; J9312

== ENCOUNTER 2020-07-10 01:46 | Outpatient (RCR) | payer OTHER, SELFPAY ==
[2020-07-10 08:51] VITALS: BP 125/83; PULSE 81; RESP 17; TEMP 36.3; O2SAT 98
[2020-07-10] MEDS: Normal Saline Flush 10 ML SYR IVP (09:00)
[2020-07-10 09:15] VITALS: BP 112/77; PULSE 74; RESP 18; TEMP 36.6; O2SAT 96
[2020-07-10 09:47] VITALS: BP 120/77; PULSE 63; RESP 16; TEMP 36.7; O2SAT 94
[2020-07-10 10:20] VITALS: BP 127/81; PULSE 63; RESP 16; TEMP 36.6; O2SAT 96
[2020-07-10 11:08] VITALS: BP 115/75; PULSE 66; RESP 17; TEMP 36.5; O2SAT 98
[2020-07-10 11:27] VITALS: BP 130/71; PULSE 62; RESP 16; TEMP 36.5; O2SAT 96
== END 2020-07-28 23:59 | disposition home or self-care (01) ==
LOC: INF 01:46
PROVIDERS: PCP Family Medicine; Visit Provider Nurse Practitioner Family
DX: N13.9 Obstructive and reflux uropathy, unspecified (principal); M35.09 Sjogren syndrome with other organ involvement
CPT/HCPCS: 96365; 96366; J9312

== ENCOUNTER 2020-07-11 12:02 | Emergency (ER) | payer OTHER, SELFPAY ==
[2020-07-11 12:06] VITALS: BP 144/88; PULSE 87; RESP 16; TEMP 36.6; O2SAT 98
--- NOTE | 2020-07-11 12:27 | W.ED.GENAD ---
Discharge Plan Disposition Patient Disposition: HOME Condition: Stable Discharge Details Clinical Impression: Diarrhea, Abdominal pain Primary Care Provider: Tory Puckett ED Provider: Mustapha Stephenson Home Meds and New Rx's Prescriptions: Continued levothyroxine [Synthroid] 25 MCG tablet 50 mcg PO DAILY RF: 0 omeprazole 10 MG capsule,delayed release(DR/EC) 20 mg PO DAILY RF: 0 trazodone 150 MG tablet 150 mg PO DAILY RF: 0 polyethylene glycol 3350 [Miralax] 17 GM powder in packet 17 gm PO for colonscopy Qty: 1 RF: 0 clonidine HCl 0.1 MG tablet 0.1 mg PO HS RF: 0 methotrexate sodium (PF) 25 mg/mL Solution 50 mg IM QWEEK RF: 0 Baking Soda 1.2 tsp PO DAILY RF: 0 famotidine [Pepcid] 20 mg tablet 20 mg PO DAILY Qty: 14 RF: 0 Discharge Instructions Instructions: Acute Diarrhea (ED), Abdominal Pain (ED) Additional Instructions: follow up with your primary care provider within 1 week if you have severe worsening pain , feel more ill or have persistent vomit return to the emergency department Medical Decision Making 69 yo female who has a history of retroperitoneal fibrosis and several years ago states had surgery where they removed this comes in with abdominal pain in the lower abdomen worsening since Tuesday. Denies vomit, fevers, chest pain, urinary symptoms, feels her stools have been loose though. She has tenderness in the lower abdomen left more than right no guarding or rebound. Given location of pain and her history will obtain lab work and imaging to evaluate for pancreatitis, sbo, diverticulitis. No severe pain to suggest mesenteric ischemia labs and imaging show no acute findings and still declines pain medicine with no guarding mild tenderness with deep palpation to the left lower quadrant. Given reassuring exam and unremarkable workup, will d/c with orders for c diff and bacterial pathogen pcr of stools and advised f/u with pcp and return precautions given Differential Diagnosis Differential Diagnosis: diverticulitis, sbo, colitis Imaging Data Radiologic Study: Attestation: I personally reviewed and interpreted this imaging study as follows: Imaging: CT Scan Radiologist's impression: IMPRESSION: 1. No acute abdominal pelvic process. 2. Status post right nephrectomy. 3. Stable appearance of the retroperitoneum. 4. Degenerative changes in the lumbar spine resulting in marked central spinal canal stenosis at L3-L4. 5. Findings were discussed with the emergency department on the date of the examination. Lab Data Lab results reviewed: Yes I reviewed the patient's lab results. HPI General Mode of arrival: ambulatory. Date/Time Provider Initiated Documentation: 07/11/20 12:10. Limitations to Documentation: no limitations. Information obtained by: patient. History of Present Illness 69 year old F presents to the emergency department with the chief complaint of abdominal pain, described as moderate, Patient started experiencing this day(s) (3) and it has been constant. No relieving factors improve symptom(s), No exacerbating factors reported . Related Data Home Medications Medication Instructions Recorded Confirmed levothyroxine [Synthroid] 50 mcg PO DAILY tab-cap 11/01/16 10/09/18 omeprazole 20 mg PO DAILY tab-cap 11/01/16 10/09/18 trazodone 150 mg PO DAILY tab-cap 11/01/16 10/09/18 polyethylene glycol 3350 [Miralax] 17 gm PO for colonscopy #1 gm 11/02/16 10/09/18 clonidine HCl 0.1 mg PO HS 03/10/17 10/09/18 Baking Soda 1.2 tsp PO DAILY 10/09/18 10/09/18 famotidine [Pepcid] 20 mg PO DAILY #14 tab 10/09/18 methotrexate sodium (PF) 50 mg IM QWEEK 10/09/18 10/09/18 Previous Rx's Medication Instructions Recorded famotidine [Pepcid] 20 mg PO DAILY #14 tab 10/09/18 Allergies Allergy/AdvReac Type Severity Reaction Status Date / Time erythromycin base Allergy Intermediate facial Unverified 10/09/18 18:16 swelling tetracycline Allergy Intermediate facial Unverified 10/09/18 18:16 swelling oxycodone AdvReac Nausea Unverified 10/09/18 18:16 General Stated Complaint: Abd Prob MAKAYLA: 3 Review of Systems All systems reviewed & are unremarkable except as noted in HPI and below Constitutional Constitutional: Denies chills, Denies fever(s) and Denies weakness Cardiovascular Cardiovascular: Denies chest pain and Denies dyspnea Respiratory Respiratory: Denies cough and Denies dyspnea Gastrointestinal Gastrointestinal: Denies vomiting Genitourinary Genitourinary: Denies dysuria Musculoskeletal Musculoskeletal: Denies joint swelling Integumentary/Breasts Skin/Breast: Denies rash Neurologic Neurologic: Denies weakness Psychiatric Psychiatric: Denies depression [facility] Medical History (Updated 07/11/20 @ 14:12 by Mustapha Stephenson MD) Breast cancer Constipation HTN (hypertension) Hypothyroidism Retroperitoneal fibrosis Surgical History section Extraction of cataract History of back surgery History of nephrectomy Hx of mastectomy low back fusion right breast removed Family History Brother Colon cancer Grandmother No problems noted. Social History Smoking/Tobacco Use Status: Never Smoking risk assessment performed?: Yes Alcohol Intake: never Drug use: Never Substance use type: does not use Do you feel safe at home: Yes Do you feel safe in your relationship?: Yes Exam Const General: no acute distress Orientation: alert HENMT Head: normal to inspection Ears: external ears normal General nose exam: external nose normal Mouth: moist mucous membranes Eyes General: appearance normal, both eyes and all related structures Neck Neck: normal visual inspection Resp Effort & Inspection: normal respiratory effort and able to speak in complete sentences Cardio Rate: regular rate GI Palpation: soft Skin General skin exam: no rashes or lesions noted Neuro General: patient alert and patient oriented x3 Extrem General: normal to inspection Psych Mental Status: mental status grossly normal Course Vital Signs Vital signs: Vital Signs Temperature 36.6 C 07/11/20 12:06 Pulse 87 07/11/20 12:06 Respiratory Rate 16 07/11/20 12:06 Blood Pressure 144/88 H 07/11/20 12:06 Pulse Oximetry 98 07/11/20 12:06 Temperature 36.6 C 07/11/20 12:06 Temperature Source Skin 07/11/20 12:06 Pulse 87 07/11/20 12:06 Respiratory Rate 16 07/11/20 12:06 Blood Pressure 144/88 H 07/11/20 12:06 Blood Pressure Position Sitting 07/11/20 12:06 Pulse Oximetry 98 07/11/20 12:06 Oxygen Delivery Method Room Air 07/11/20 12:06 Oxygen Flow Rate 0 07/11/20 12:06 Pain Level 0 07/11/20 12:06
[2020-07-11 12:59] LABS: Abs Immature Grans 0.03 10^3/uL (0.0-0.06); Absolute Basophil Count 0.05 10^3/uL (0.0-0.2); Absolute Eosinophil Count 0.07 10^3/uL (0.0-0.7); Absolute Lymphocyte Count 1.48 10^3/uL (1.2-3.4); Absolute Monocyte Count 0.32 10^3/uL (0.1-0.8); Absolute Neutrophil Count 4.63 10^3/uL (1.2-6.7); Basophils % 0.8; Eosinophils % 1.1; HCT 39.7 % (36.0-46.0); HGB 13.5 g/dL (11.2-15.7); Immature Grans % 0.5; Lymphocytes % 22.5; MCH 33.1 pg (27.0-33.0); MCV 97.3 fL (80-95); MPV 9.9 fL (8.0-11.0); Monocytes % 4.9; Neutrophils % 70.2; Nucleated RBC 0 %; Platelet Count 304 10^3/uL (130-400); RBC 4.08 10^6/uL (3.93-5.22); RDW 12.4 % (11.7-14.6); RDW-SD 44.6 fL; WBC 6.58 10^3/uL (4.4-10.8)
[2020-07-11 13:03] LABS: Bilirubin Negative (Negative); Blood Trace-intact (Negative); Clarity Clear (Clear); Glucose Negative (Negative); Ketones Negative (Negative); Leukocyte Esterase Trace (Negative); Nitrite Negative (Negative); Specific Gravity 1.025 (1.005-1.025); Urobilinogen 0.2 EU/dL (Up TO 0.2)
[2020-07-11 13:10] LABS: ALT 16 U/L (14-59); AST 14 U/L (15-37); Albumin 4.2 g/dL (3.4-5.0); Alkaline Phosphatase 73 U/L (46-116); Anion Gap 11.8 mmol/L (3-11); BUN 20 mg/dL (7-18); Bilirubin, Total 0.3 mg/dL (0.2-1.0); CO2 25.2 mmol/L (21.0-32.0); CREATININE 1.36 mg/dL (0.55-1.02); Calcium 9.3 mg/dL (8.5-10.1); Chloride 103 mmol/L (98-107); Estimated GFR 38.44 (mL/min/1.73m2); Glucose 93 mg/dL (74-106); Lipase 80 U/L (73-393); Potassium 3.8 mmol/L (3.5-5.1); Sodium 140 mmol/L (136-145); Total Protein 8.1 g/dL (6.4-8.2)
[2020-07-11 13:12] LABS: Bilirubin, Direct 0.07 mg/dL (0.00-0.20); Bilirubin, Total 0.3 mg/dL (0.2-1.0); Magnesium 2.1 mg/dL (1.8-2.4)
[2020-07-11 13:16] LABS: Bacteria Negative HPF (Negative); C & S Indicated? Yes; Casts Negative LPF (Negative); Crystals Negative HPF (Negative); Epithelial Cells Few HPF (Negative); Mucus Trace (Negative)
--- NOTE | 2020-07-11 13:35 | DI.CT_ITS ---
EXAM: CT ABDOMEN PELVIS WO CLINICAL HISTORY: abdominal pain. TECHNIQUE: Imaging Protocol: Axial computed tomography images with coronal and sagittal reformatted images were created and reviewed. COMPARISON: CT CT ABDOMEN PELVIS WO from 10/09/2018 FINDINGS: ABDOMEN: Lung Bases: Normal where visualized. Liver: Normal density. No measurable mass. Gallbladder and biliary tract: No radiodense calculus or biliary ductal dilation. Pancreas: Normal density, no abnormal calcifications or inflammatory process. Spleen: Normal. Kidneys: Status post right nephrectomy.Left kidney is unremarkable. No evidence of obstruction. No masses seen. Adrenal glands: No mass is seen. Lymph nodes: Within normal limits. Abdominal Aorta: Abdominal portion non-dilated. Atherosclerosis. PELVIS: Bladder:Symmetric distention, no gross wall thickening. Bowel: No obstruction or bowel wall thickening. No evidence of appendicitis. Large amount of stool t hroughout the colon. Peritoneal cavity: Retroperitoneal soft tissue is again seen and unchanged. The previously noted fat density masses in the right retroperitoneum have partially calcified. Reproductive organs: Within normal limits. Bones: Degenerative changes. Postsurgical changes in the lumbar spine. There are degenerative johnston es at L3-L4 consisting of a diffuse disc bulge and hypertrophic changes of the facets and ligamentum flavum. These all contribute to cause marked central spinal canal stenosis. Soft Tissues: Within normal limits. IMPRESSION: 1. No acute abdominal pelvic process. 2. Status post right nephrectomy. 3. Stable appearance of the retroperitoneum. 4. Degenerative changes in the lumbar spine resulting in marked central spinal canal stenosis at L3-L 4. 5. Findings were discussed with the emergency department on the date of the examination. RADIATION DOSE DELIVERED: 1,091.47mGy.cm Total DLP DATA REPOSITORY: All CT scans at this facility are submitted to the National Radiology Data Registry (NRDR) Dose Index Registry (DIR) with the [employer] (ACR). RADIATION OPTIMIZATION: All CT scans at this facility use at least one of these dose optimization te chniques: automated exposure control; mA and/or kV adjustment per patient size (includes targeted exa ms where dose is matched to clinical indication); or iterative reconstruction.
[2020-07-11 14:07] VITALS: BP 150/78; PULSE 65; RESP 16; O2SAT 97
[2020-07-11 17:58] LABS: APTT (LRH) 24.2 secs (21.3-28.4); Protime (LRH) 9.7 secs (9.1-10.6)
== END 2020-07-11 14:25 | disposition home or self-care (01) ==
PROVIDERS: Emergency Provider Emergency Medicine; PCP Family Medicine
DX: R19.8 Other specified symptoms and signs involving the digestive system and abdomen (principal); R10.32 Left lower quadrant pain; I10 Essential (primary) hypertension
CPT/HCPCS: 36415; 80053; 83690; 99284; 74176; 81003; 81015; 82247; 82248; 83735; 85025; 85610; 85730; 87086; 99285

== ENCOUNTER 2021-01-08 01:53 | Outpatient (RCR) | payer OTHER, SELFPAY ==
[2021-01-08] VITALS (8 sets, daily range): BP systolic 111–147; BP diastolic 69–85; PULSE 59–80; RESP 16; TEMP 35.6–36.7; O2SAT 95–98
[2021-01-08] MEDS: Loratidine 10 MG TAB PO (09:17)
[2021-01-08] MEDS: Acetaminophen 325 MG TAB 650 MG PO (09:17)
[2021-01-08] MEDS: Normal Saline Flush 10 ML SYR IVP (09:18)
== END 2021-01-26 23:59 | disposition home or self-care (01) ==
LOC: INF 01:53
PROVIDERS: PCP Family Medicine; Visit Provider Nurse Practitioner Acute Care
DX: N13.5 Crossing vessel and stricture of ureter without hydronephrosis (principal)
CPT/HCPCS: 96365; 96366; 96413; 96415; J9312

== ENCOUNTER 2021-04-08 11:18 | Outpatient (REF) | payer OTHER, SELFPAY | END 2021-04-08 11:19 | disposition home or self-care (01) | LOC: NCHCN 11:18 | PROVIDERS: PCP Family Medicine; Visit Provider Family Medicine | DX: E03.9 Hypothyroidism, unspecified (principal) | CPT/HCPCS: 84443 ==

== ENCOUNTER 2021-05-28 14:47 | Outpatient (REF) | payer OTHER, SELFPAY ==
[2021-05-30 10:51] LABS: COVID-19 RT-PCR UVMMC Result Negative (Negative)
== END 2021-05-28 14:48 | disposition home or self-care (01) ==
LOC: NCHCN 14:47
PROVIDERS: PCP Family Medicine; Visit Provider Family Medicine
DX: Z20.822 Contact with and (suspected) exposure to COVID-19 (principal); J02.9 Acute pharyngitis, unspecified
CPT/HCPCS: U0003

== ENCOUNTER 2021-06-24 09:00 | Outpatient (RCR) | payer OTHER, SELFPAY ==
[2021-01-27 00:01] VITALS: BP 127/81; PULSE 77; RESP 16; TEMP 36.7
[2021-06-24] VITALS (8 sets, daily range): BP systolic 112–140; BP diastolic 72–84; PULSE 57–77; RESP 16–18; TEMP 35.9–36.5; O2SAT 96–98
[2021-06-24] MEDS: Normal Saline Flush 10 ML SYR IVP (09:05)
[2021-06-24 10:43] LABS: ALT 16 U/L (14-59); AST 12 U/L (15-37); Alkaline Phosphatase 58 U/L (46-116); Anion Gap 6.8 mmol/L (3-11); BUN 24 mg/dL (7-18); Bilirubin, Total 0.4 mg/dL (0.2-1.0); CO2 30.2 mmol/L (21.0-32.0); CREATININE 1.5 mg/dL (0.55-1.02); Calcium 9.3 mg/dL (8.5-10.1); Chloride 102 mmol/L (98-107); Estimated GFR 34.23 (mL/min/1.73m2); Glucose 90 mg/dL (74-106); Potassium 4.1 mmol/L (3.5-5.1); Sodium 139 mmol/L (136-145); Total Protein 7.3 g/dL (6.4-8.2)
[2021-06-24 10:49] LABS: Abs Immature Grans 0.03 10^3/uL (0.0-0.06); Absolute Basophil Count 0.06 10^3/uL (0.0-0.2); Absolute Eosinophil Count 0.07 10^3/uL (0.0-0.7); Absolute Monocyte Count 0.36 10^3/uL (0.1-0.8); Absolute Neutrophil Count 4.89 10^3/uL (1.2-6.7); Basophils % 0.9; Eosinophils % 1.1; HCT 36.6 % (36.0-46.0); HGB 12.2 g/dL (11.2-15.7); Immature Grans % 0.5; Lymphocytes % 18.2; MCH 32.6 pg (27.0-33.0); MCHC 33.3 % (32.0-36.0); MCV 97.9 fL (80-95); MPV 10.1 fL (8.0-11.0); Monocytes % 5.4; Neutrophils % 73.9; Nucleated RBC 0 %; Platelet Count 291 10^3/uL (130-400); RBC 3.74 10^6/uL (3.93-5.22); RDW 12.4 % (11.7-14.6); RDW-SD 44.7 fL; WBC 6.61 10^3/uL (4.4-10.8)
[2021-06-24 11:08] LABS: ESR 10 mm/hr (0-30)
[2021-06-24 12:06] LABS: Bilirubin Negative (Negative); Blood Negative (Negative); Clarity Clear (Clear); Glucose Negative (Negative); Ketones Negative (Negative); Leukocyte Esterase Negative (Negative); Nitrite Negative (Negative); Specific Gravity <= 1.005 (1.005-1.025); Urobilinogen 0.2 EU/dL (Up TO 0.2)
== END 2021-06-28 23:59 | disposition home or self-care (01) ==
LOC: INF 09:00
PROVIDERS: Internal Medicine Rheumatology; PCP Family Medicine; Visit Provider Nurse Practitioner Acute Care
DX: N13.5 Crossing vessel and stricture of ureter without hydronephrosis (principal); K68.9 Other disorders of retroperitoneum
CPT/HCPCS: 36415; 80053; 85652; 96365; 96366; 81003; 85025; 86140; J9312

== ENCOUNTER → 2021-07-16 01:24 | Outpatient (CLI) | payer OTHER, SELFPAY ==
--- NOTE | 2021-07-16 14:00 | DI.US_ITS ---
Exam(s) US RENAL EXAM: US RENAL CLINICAL HISTORY: RETROPERITONEAL FIBROSIS N13.5 S/P RT NEPHRECTOMY ? LT HYDRO TECHNIQUE: Ultrasound of both kidneys performed using standard protocol. COMPARISON: US RIGHT BREAST ULTRASOUND from 08/26/2017 FINDINGS: RIGHT KIDNEY: Right kidney is surgically absent. LEFT KIDNEY: Measures 11.8 cm in length. No cysts evident. Normal cortical thickness and corticomedullary differe ntiaion. No solids masses. No calculi. There appears to be mild left-sided hydronephrosis but this appeared to resolve post urination. Scanning of the left kidney was repeated postvoid. URINARY BLADDER: Prevoid volume is 87 cc Postvoid volume is 0 cc No evidence of bladder mass nor diverticuli. Ureterovesical jets: Left ureterovesical jet was visualized IMPRESSION: 1. Right kidney is surgically absent 2. Mild left-sided hydronephrosis which appeared to resolve with scanning repeated post micturition. DATA REPOSITORY:
== END ==
PROVIDERS: PCP Family Medicine; Visit Provider Urology
DX: N13.5 Crossing vessel and stricture of ureter without hydronephrosis (principal); Z90.5 Acquired absence of kidney
CPT/HCPCS: 76770

== ENCOUNTER 2021-09-01 19:05 | Outpatient (REF) | payer OTHER, SELFPAY ==
[2021-09-02 17:05] LABS: COVID-19 RT-PCR UVMMC Result Negative (Negative)
== END 2021-09-01 19:06 | disposition home or self-care (01) ==
LOC: NCHCN 19:05
PROVIDERS: PCP Family Medicine; Visit Provider Family Medicine
DX: Z20.822 Contact with and (suspected) exposure to COVID-19 (principal)
CPT/HCPCS: U0003; U0005

== ENCOUNTER 2021-12-09 02:17 | Outpatient (RCR) | payer OTHER, SELFPAY ==
[2021-06-29 00:01] VITALS: BP 133/81; PULSE 57; RESP 17; TEMP 36.1
[2021-12-09] VITALS (7 sets, daily range): BP systolic 124–140; BP diastolic 74–87; PULSE 54–94; RESP 17–20; TEMP 36.2–36.6; O2SAT 97–100
[2021-12-09] MEDS: Normal Saline Flush 10 ML SYR IVP (10:16)
== END 2021-12-26 23:59 | disposition home or self-care (01) ==
LOC: INF 02:17
PROVIDERS: PCP Family Medicine; Visit Provider Nurse Practitioner Acute Care
DX: N13.5 Crossing vessel and stricture of ureter without hydronephrosis (principal)
CPT/HCPCS: 96365; 96366; J9312

== ENCOUNTER 2022-03-26 11:24 | Outpatient (CLI) | payer OTHER, SELFPAY ==
[2022-03-26 11:48] LABS: Abs Immature Grans 0.01 10^3/uL (0.0-0.06); Absolute Basophil Count 0.05 10^3/uL (0.0-0.2); Absolute Eosinophil Count 0.06 10^3/uL (0.0-0.7); Absolute Lymphocyte Count 1.41 10^3/uL (1.2-3.4); Absolute Monocyte Count 0.35 10^3/uL (0.1-0.8); Absolute Neutrophil Count 4.61 10^3/uL (1.2-6.7); Basophils % 0.8; Eosinophils % 0.9; HCT 39.7 % (36.0-46.0); HGB 13.3 g/dL (11.2-15.7); Immature Grans % 0.2; Lymphocytes % 21.7; MCH 32.4 pg (27.0-33.0); MCHC 33.5 % (32.0-36.0); MCV 97 fL (80-95); MPV 9.7 fL (8.0-11.0); Monocytes % 5.4; Platelet Count 276 10^3/uL (130-400); RDW 12.4 % (11.7-14.6); RDW-SD 44.5 fL; WBC 6.49 10^3/uL (4.4-10.8)
[2022-03-26 11:55] LABS: ESR 25 mm/hr (0-30)
[2022-03-26 12:45] LABS: ALT 19 U/L (14-59); AST 16 U/L (15-37); Albumin 4.5 g/dL (3.4-5.0); Alkaline Phosphatase 67 U/L (46-116); Anion Gap 14.2 mmol/L (3-11); BUN 19 mg/dL (7-18); Bilirubin, Total 0.6 mg/dL (0.2-1.0); CO2 20.8 mmol/L (21.0-32.0); CREATININE 1.4 mg/dL (0.55-1.02); Calcium 9.3 mg/dL (8.5-10.1); Chloride 102 mmol/L (98-107); Estimated GFR 36.96 (mL/min/1.73m2); Glucose 92 mg/dL (74-106); Potassium 3.9 mmol/L (3.5-5.1); Sodium 137 mmol/L (136-145); Total Protein 7.9 g/dL (6.4-8.2)
[2022-03-26 12:56] LABS: C-Reactive Protein 0.92 mg/dL (0.0-0.3)
[2022-03-26 14:47] LABS: Bilirubin Negative (Negative); Blood Negative (Negative); Clarity Clear (Clear); Glucose Negative (Negative); Ketones Negative (Negative); Leukocyte Esterase Trace (Negative); Nitrite Negative (Negative); Specific Gravity <= 1.005 (1.005-1.025); Urobilinogen 0.2 EU/dL (Up TO 0.2)
[2022-03-26 14:54] LABS: Bacteria Few HPF (Negative); C & S Indicated? Yes; Casts Negative LPF (Negative); Crystals Negative HPF (Negative); Epithelial Cells Few HPF (Negative); Mucus Negative (Negative); Other Cells Few Transitional (Negative); RBC 0-2 HPF (0-2)
[2022-03-26 15:32] LABS: COMMENT (LAB VIEW ONLY) 16.35 mg/dL
[2022-03-26 15:39] LABS: PROTEIN < 6.0 mg/dL
== END 2022-03-26 11:25 | disposition home or self-care (01) ==
LOC: LBO 11:24
PROVIDERS: PCP Family Medicine; Visit Provider Internal Medicine Rheumatology
DX: M35.00 Sjogren syndrome, unspecified (principal); R53.83 Other fatigue; M81.0 Age-related osteoporosis without current pathological fracture; N13.5 Crossing vessel and stricture of ureter without hydronephrosis; M19.90 Unspecified osteoarthritis, unspecified site
CPT/HCPCS: 36415; 80053; 85652; 87077; 81003; 81015; 82565; 84156; 85025; 86140; 87086; 87186

== ENCOUNTER 2022-03-26 12:11 | Outpatient (CLI) | payer OTHER, SELFPAY | END 2022-03-26 12:12 | disposition home or self-care (01) | LOC: LBO 12:15 | PROVIDERS: PCP Family Medicine; Visit Provider Internal Medicine Rheumatology ==

== ENCOUNTER → 2022-03-26 12:57 | Outpatient (CLI) | payer OTHER, SELFPAY ==
--- NOTE | 2022-03-26 | DI.US_ITS ---
Exam(s) US LOWER EXTREMITY VENOUS LT EXAM: US LOWER EXTREMITY VENOUS LT CLINICAL HISTORY: PAIN IN LT LOWER LEG, M79.662 TECHNIQUE: Left lower extremity venous ultrasound performed using grayscale, color-flow, and spectra l Doppler analysis. COMPARISON: No exams were available for comparison FINDINGS: The left common femoral, femoral and popliteal veins demonstrate normal compressibility, augmentation , and color Doppler. The posterior tibial veins are patent. The saphenofemoral junction is unremarka ble. There is no evidence of a C[place] cyst. The soft tissues are unremarkable. IMPRESSION: No evidence of a left lower extremity DVT. DATA REPOSITORY:
--- NOTE | 2022-03-26 | DI.RAD_ITS ---
Exam(s) XR KNEE LT 3V AP,LAT,BETO EXAM: XR KNEE LT 3V AP,LAT,BETO CLINICAL HISTORY: LEFT KNEE PAIN--M25.562. TECHNIQUE: 2D digital imaging was performed of the left knee. Three images were obtained. AP, late ral and PA tunnel views were obtained. COMPARISON: No previous for comparison. FINDINGS: BONES: No acute fracture is present. No bony destructive lesion is seen. There is a small enthesophy te at the superior patella. JOINTS: The knee is normally aligned. No joint effusion is seen. SOFT TISSUE: Normal. IMPRESSION: No acute abnormality. DATA REPOSITORY: RADIATION DOSE DELIVERED:
== END ==
PROVIDERS: PCP Family Medicine; Visit Provider Physician Assistant Medical
DX: M79.662 Pain in left lower leg (principal); M25.562 Pain in left knee
CPT/HCPCS: 73562; 93971

== ENCOUNTER → 2022-04-09 10:57 | Outpatient (BNVA) | payer OTHER, SELFPAY | PROVIDERS: PCP Family Medicine; Referring Provider Family Medicine; Visit Provider Surgery | DX: Z86.010 Personal history of colon polyps (principal); Z12.11 Encounter for screening for malignant neoplasm of colon ==

== ENCOUNTER 2022-05-26 08:26 | Day surgery (SDC) | payer OTHER, SELFPAY ==
--- NOTE | 2022-05-26 06:34 | HPE_ITS ---
Assessment and Plan Assessment and plan (1) Screening for colon cancer: Status: Acute Assessment and plan: Mrs Baker is a pleasant 71-year-old female who is here for another screening colonoscopy.? Her last colonoscopy was in 2017 and was normal.? Her previous colonoscopy in 2012 revealed 2 tubular adenomas.? She did not have any issues with her last colonoscopy.? She had no issues with the prep or with the sedation.? She denies chest pain or shortness of breath. We did discuss that because of her surgery for her retroperitoneal fibrosis she may have some adhesions which may cause the large intestine to be less mobile.? This sometimes can make the procedure a little bit more complex.? We reviewed the complication risk.? Risks, benefits and complications have been reviewed. Complications include but are not limited to bleeding, pain, perforation, missed small lesion/polyp, sore throat, aspiration and adverse reaction to the medications. Questions were entertained and answered to their satisfaction and they wished to proceed. No guarantees were given or implied. Anesthesia: general (without airway) Previous surgical intolerances: No Previous surgical complications: No Pulmonary risk factors: age > 60 Date of surgery: 05/26/22 Planned procedure: Yes Sleep apnea risks: No Can climb one flight of stairs (12-13 steps) in less than 30 seconds without stopping and without symptoms: Yes The surgery proposed for this patient is: low risk Active cardiac conditions: none Active risk factors: none ASA (acetylsalicylic acid): not used Beta blockers: not used Proceed with colonoscopy under sedation ? History of Present Illness Narrative: Mrs Baker is a pleasant 71-year-old female who comes in today to discuss a follow-up colonoscopy.? This was recommended by her telecom field technician at [facility].? She had her original colonoscopy back in 2011.? She was found to have 2 tubular adenomas.? She had a repeat colonoscopy in 2017 at [facility] which was normal.? She denies any melena or hematochezia.? She denies a family history of bowel cancer.? She does have a history of chronic constipation which has been going on for a long time.? She sometimes will go 8 to 9 days without going to the bathroom.? She has abdominal pain when she goes that long.? She has tried Metamucil, MiraLAX and lactulose in the past.? She feels like that worked for a little while and then stopped working.? She is currently taking Senokot Gummies at nighttime which are helping.? She has had no unintentional weight loss. Her past medical history is significant for hypothyroidism, retroperitoneal fibrosis.? She did have surgery for her retroperitoneal fibrosis and is now on Rituxan every 24 weeks.? Her last dose was in November.? She is due for her next dose in May.? She denies chest pain or shortness of breath. There have been no changes in her health since I last saw her. Review of Systems All systems reviewed & are unremarkable except as noted in HPI and below PFSH All Active Problems Irregular bowel habits (Acute) Screening for colon cancer (Acute) Tubular adenoma of colon (Acute) Medical History Anemia Breast cancer Cervical radiculopathy Constipation HTN (hypertension) Hypothyroidism Retroperitoneal fibrosis Surgical History section Extraction of cataract History of back surgery History of nephrectomy Hx of mastectomy low back fusion right breast removed S/P colonoscopy 2011- [facility] ([place])2 Tubular adenoma 2017- [facility] [place]- normal Family History Brother Colon cancer Grandmother No problems noted. Social History Smoking/Tobacco Use Status: Never Smoking risk assessment performed?: Yes Alcohol Intake: never Drug use: Never Substance use type: does not use Do you feel safe at home: Yes Do you feel safe in your relationship?: Yes Meds Allergies and Home Medications Allergies Allergy/AdvReac Type Severity Reaction Status Date / Time erythromycin base Allergy Intermediate facial Unverified 05/26/22 08:42 swelling tetracycline Allergy Intermediate facial Unverified 05/26/22 08:42 swelling oxycodone AdvReac Intermediate Nausea Unverified 05/26/22 08:42 Home Medications Medication Instructions Recorded Confirmed Type levothyroxine 25 mcg tablet 50 mcg PO DAILY 11/01/16 05/26/22 History (Synthroid) trazodone 150 mg tablet 150 mg PO DAILY 11/01/16 05/26/22 History Baking Soda 1.2 tsp PO DAILY 10/09/18 04/09/22 History albuterol sulfate 90 mcg/actuation 2 puff inhalation Q6H PRN 03/24/22 04/09/22 History aerosol inhaler (Ventolin HFA) amlodipine 5 mg tablet 5 mg PO HS 03/24/22 05/26/22 History rituximab 1,400 mg/11.7 mL (120 subcut 03/24/22 04/09/22 History mg/mL)-hyaluronidase subcutaneous soln (Rituxan Hycela) cholecalciferol (vitamin D3) 50 50 mcg PO DAILY 04/09/22 05/26/22 History mcg (2,000 unit) capsule polyethylene glycol 3350 17 238 g PO ONCE colonoscopy prep 04/09/22 05/26/22 Rx gram/dose oral powder #238 grams vitamin B complex (B 1 tab PO DAILY 04/09/22 05/26/22 History Complex-Vitamin B12 tablet) tramadol 50 mg tablet 50 mg PO QID PRN 04/28/22 History bisacodyl 5 mg tablet,delayed 5 mg PO ONCE colonscopy bowel prep 05/25/22 05/26/22 Rx release (Dulcolax (bisacodyl)) #4 tabs Exam Const General: comfortable and no acute distress Orientation: alert and oriented x3 HENMT Head: normocephalic and atraumatic Resp Effort & Inspection: normal respiratory effort Auscultation: clear to auscultation bilaterally Cardio Rate: regular rate Rhythm: regular rhythm
--- NOTE | 2022-05-26 06:34 | W.COLOREPORT ---
Colonoscopy Report Date of procedure: 05/26/22 Pre-op diagnosis general: Colon Cancer Screening, Hx of polyps Post-op diagnosis procedure note: other (polyp and Grade 1 internal hemorrhoids) Procedure: Colonoscopy with polypectomy Surgeon: Yue Burt Anesthesia Type: General:No Airway Estimated blood loss (mL): 2 Pathology: other (descending polyp) Complications: None Disposition: same day Prep: Miralax/Dulcolax Procedure Start Time: 09:58 Procedure End Time: 10:21 Retraction Time: 12 minutes Findings: One small descending polyp Grade 1 internal hemorrhoids Procedure Description: After informed consent was obtained the patient was taken to the procedure room and placed in a left decubitous position. Monitors were applied and a time out was done. The patients name, date of , procedure, allergies to medications and metal in their body was reviewed. The patient was then sedated. Once sedated and comfortable a rectal exam was done. External exam was normal. Internal exam revealed a normal sphincter tone and no palpable masses. The scope was then introduced and retro-flexed. Grade 1 internal hemorrhoids were noted. No polyps or masses were identified on retro-flexion. The scope was then advanced to the cecum [without difficulty. The ileocecal vlave and appendiceal orifice were identified. The prep was adequate. The scope was then slowly retracted over 12 minutes back into the rectum. Polyps were removed with cold forceps in the descending colon. The scope was removed and the patient was woken up and taken back to Same day surgery in stable condition. The patient tolerated the procedure well and there were no immediate complications.
--- NOTE | 2022-05-26 06:36 | W.PM.DSUDISC ---
Discharge Plan Disposition Patient Disposition: HOME Condition: Good Discharge Details Reason For Visit: colonoscopy Attending Provider: Yue Burt Primary Care Provider: Tory Puckett Home Meds and New Rx's Prescriptions: Continued cholecalciferol (vitamin D3) 50 mcg (2,000 unit) capsule 50 mcg PO DAILY vitamin B complex [B Complex-Vitamin B12] Tablet 1 tab PO DAILY levothyroxine [Synthroid] 25 MCG tablet 50 mcg PO DAILY trazodone 150 MG tablet 150 mg PO DAILY amlodipine 5 mg tablet 5 mg PO HS albuterol sulfate [Ventolin HFA] 90 mcg/actuation HFA aerosol inhaler 2 puff inhalation Q6H PRN Rituxan Hycela 1,400 mg/11.7 mL (120 mg/mL) solution subcut tramadol 50 mg tablet 50 mg PO QID PRN Baking Soda 1.2 tsp PO DAILY Discontinued polyethylene glycol 3350 17 gram/dose powder 238 g PO ONCE Qty: 238 0RF Rx Instructions: take per colonoscopy instructions bisacodyl [Dulcolax (bisacodyl)] 5 mg tablet,delayed release (DR/EC) 5 mg PO ONCE Qty: 4 0RF Rx Instructions: take per colonoscopy instructions Discharge Instructions Instructions: Hemorrhoids (DC) Additional Instructions: Findings: small internal hemorrhoids descending colon polyps Follow up: 5 years Please call if you develop: fevers >101.5 Nausea or Vomiting Abdominal pain that is not transient Rectal bleeding that is more then a tbsp A hard abdomen and inability to pass gas DAY SURGERY UNIT POST ENDOSCOPY INSTRUCTIONS Instructions for everyone who is given Anesthesia: For your safety, please do the following for the next 24 Hours: a. Do not drive or operate dangerous equipment b. Do not drink alcohol beverages or use any recreational drugs for the first 24 hours or while taking pain medications. The medications in your body may have a reaction that can be dangerous. c. Do not make any important decisions or sign any important papers 1. Generally there are no restrictions on your activity after a day or so has gone by, but you may feel a bit fatigued for a few days. 2. After you arrive home you may have a light meal and return to a normal diet as you can tolerate it without feeling sick to your stomach. 3. After surgery, you may feel pain or discomfort. This should be only transient, but if it persists please contact your doctor. 4. If there are any questions regarding the findings of your procedure, please feel free to contact your doctor. 6. If you are unable to contact your doctor with a problem, contact the hospital at [phone]. 7. Continue all your regular medications unless directed otherwise. I understand the above instructions and have no questions. Signature of Patient or Responsible Adult Escort Date/Time Name of Responsible Adult Escort Signature of Nurse Date/Time Activity:: Activity as Tolerated Diet:: As Tolerated Discharge Orders Discharge Orders: Discharge Order (Routine); Ordered 05/26/22 Ordered By: Yue Burt DS: Diagnosis Discharge Diagnosis (1) Screening for colon cancer: Status: Acute
[2022-05-26 08:30] VITALS: BP 133/81; PULSE 90; RESP 16; TEMP 36.3; O2SAT 98
[2022-05-26] MEDS: Lactated Ringers 1,000 ML 80 ML IV (08:58)
--- NOTE | 2022-05-26 09:49 | ANES.PREOP_ITS ---
General Info Date of Service Date Performed: 05/26/22 Height: 5 ft 5 in Weight: 91.5 kg Body Mass Index (BMI): 33.5 Surgical Procedure: Operation Date: 05/26/22 11:35 Proposed Procedure Side Surgeon p Colonoscopy Yue Burt MD Actual Procedure Side Surgeon p Colonoscopy Not Applicable Yue Burt MD Pre-Op Diagnosis Post-Op Diagnosis colonoscopy colonoscopy Meds Allergies and Home Medications Allergies Allergy/AdvReac Type Severity Reaction Status Date / Time erythromycin base Allergy Intermediate facial Unverified 05/26/22 08:42 swelling tetracycline Allergy Intermediate facial Unverified 05/26/22 08:42 swelling oxycodone AdvReac Intermediate Nausea Unverified 05/26/22 08:42 Home Medication Medication Instructions Recorded levothyroxine 25 mcg tablet 50 mcg PO DAILY 11/01/16 (Synthroid) trazodone 150 mg tablet 150 mg PO DAILY 11/01/16 Baking Soda 1.2 tsp PO DAILY 10/09/18 albuterol sulfate 90 mcg/actuation 2 puff inhalation Q6H PRN 03/24/22 aerosol inhaler (Ventolin HFA) amlodipine 5 mg tablet 5 mg PO HS 03/24/22 rituximab 1,400 mg/11.7 mL (120 subcut 03/24/22 mg/mL)-hyaluronidase subcutaneous soln (Rituxan Hycela) cholecalciferol (vitamin D3) 50 50 mcg PO DAILY 04/09/22 mcg (2,000 unit) capsule polyethylene glycol 3350 17 238 g PO ONCE colonoscopy prep 04/09/22 gram/dose oral powder #238 grams vitamin B complex (B 1 tab PO DAILY 04/09/22 Complex-Vitamin B12 tablet) tramadol 50 mg tablet 50 mg PO QID PRN 04/28/22 bisacodyl 5 mg tablet,delayed 5 mg PO ONCE colonscopy bowel prep 05/25/22 release (Dulcolax (bisacodyl)) #4 tabs Current Visit Medications: Current Medications Generic Name Dose Route Start Last Admin Trade Name Freq PRN Reason Stop Dose Admin Hyoscyamine Sulfate 0.125 mg 05/26/22 06:37 Hyoscyamine 0.125 Mg Sl/Oral/Chew SL DIRECTED PRN Ringer's Solution 1,000 mls @ 80 mls/hr 05/26/22 06:00 05/26/22 08:58 IV 06/24/22 23:59 80 mls/hr INFUSION PAYTON Administration IV Miscellaneous Supplies 1 each 05/26/22 06:00 Iv Access IV 06/24/22 23:59 DIRECTED PAYTON Ondansetron HCl 4 mg 05/26/22 06:37 Ondansetron 4 Mg/2 Ml Vial IVP Q4H PRN PRN Nausea / Vomiting Sodium Chloride 0 ml 05/26/22 06:00 Normal Saline Flush 10 Ml Syr IV 06/24/22 23:59 PRN PRN Sodium Chloride 0 ml 05/26/22 06:00 Normal Saline 10 Ml Vial IJ 06/24/22 23:59 DIRECTED PRN Sterile Water 0 ml 05/26/22 06:00 Water,Injection,Sterile 10 Ml Vial IJ 06/24/22 23:59 DIRECTED PRN PFSH Active Problems Active Problems: Problem Status Onset Code Irregular bowel habits R19.8 Screening for colon cancer Z12.11 Tubular adenoma of colon D12.6 Medical History Medical History Anemia Breast cancer Cervical radiculopathy Constipation HTN (hypertension) Hypothyroidism Retroperitoneal fibrosis Surgical History Surgical History section Extraction of cataract History of back surgery History of nephrectomy Hx of mastectomy low back fusion right breast removed S/P colonoscopy 2011- [facility] ([place])2 Tubular adenoma 2017- [facility] [place]- normal Tobacco Smoking/Tobacco Use Status: Never Alcohol Alcohol Intake: never Substance Use Substance use: Never Substance use type: does not use Vital Signs and Lab Results Vital Signs Most Recent Vital Signs in EMR: Most Recent Vital Signs Temp Pulse Resp BP Pulse Ox 36.3 C L 90 16 133/81 98 05/26/22 08:30 05/26/22 08:30 05/26/22 08:30 05/26/22 08:30 05/26/22 08:30 Lab Results Blood Type / Crossmatch: No Data to Display Complete Blood Count: No Data to Display Complete Metabolic Panel: No Data to Display Liver Function Panel: No Data to Display Coagulation Panel: No Data to Display Cardiac Panel: No Data to Display Arterial Blood Gas: No Data to Display Venous Blood Gas: No Data to Display Pancreas Panel: No Data to Display Thyroid Panel: No Data to Display Infectious Disease: No Data to Display Blood Cultures: No Data to Display Toxicology Panel: No Data to Display Anesthesia Assessment and Plan Anesthesia History Personal History: No History of Anesthesia Complications Family History: No Family History of Anesthesia Complications Exercise Tolerance Exercise Tolerance: Metabolic Equivalents>4 Pertinent Negatives Pertinent Negatives: No Symptoms of GERD, No Major Cardiovascular Symptoms or Complaints, No Major Pulmonary Symptoms or Complaints and No History of CVA/TIA Cardiac & Pulmonary Exam Cardiac Exam: Normal S1/S2 Heart Sounds Pulmonary Exam: Clear Bilateral Breath Sounds Implantable Cardiac Device Does patient have a Pacemaker or an ICD?: No Airway Exam Known Difficult Airway: No Mallampati Class: 1 Mouth Opening: Normal (> 3cm) Thyromental Distance: Greater than 3 cm Neck Range of Motion: Full ROM Neck Circumference: Thick Teeth Condition: Normal Dentition ASA Classification ASA Score: ASA 2 Emergency Case?: No NPO Status NPO Status: NPO Clears >2 hours, Solids >8 hours Anesthesia Plan Resuscitation Status: Full Code Anesthesia Technique: General Anesthesia Airway Planned: Natural Airway Monitors Used: Standard Monitors
[2022-05-26 09:51] VITALS: BMI 33.5
--- NOTE | 2022-05-26 10:16 | BOWEL_PTH ---
PATIENT: Nurys Baker LOC: [facility] U#:[id number] AGE/SX: 71/F ROOM: RE05/26/[address]: Yue Burt MD : 1950 BED: DIS: 05/26/2022 SPEC #: [id number] RECD: 05/26/22 12:42 STATUS: YOUSIF REQ #: [id number] LORIE: 05/26/22 10:[address]: Yue Burt DEPT: Surgical Specimen RECD BY: Yanet Jacobs ENTERED: 05/26/22 12:43 SP TYPE: Bowel OTHR DR: Tory Puckett Tissues: 1 - BIOPSY BOWEL Procedures: GROSS AND MICRO LEVEL 4 Comments: [id number]
[2022-05-26 10:30] VITALS: BP 133/79; PULSE 62; RESP 16; TEMP 36.4; O2SAT 96
--- NOTE | 2022-05-26 10:34 | W.ANESPOSTOP ---
Postoperative Evaluation Date, Time and Location Date Performed: 05/26/22 Time Performed: 10:34 Patient Location: Day Surgery Unit Vital Signs Most Recent Imported Vital Signs: Most Recent Vital Signs Temp Pulse Resp BP Pulse Ox 36.3 C L 90 16 133/81 98 05/26/22 08:30 05/26/22 08:30 05/26/22 08:30 05/26/22 08:30 05/26/22 08:30 Most Recent Manually Entered Vital Signs: Adult Blood Pressure: 133/79 Heart Rate: 62 Respirations: 16 Oxygen Saturation (%): 96 Temperature (C): 36.8 C Pain Score (0-10 Scale): 0 Assessment Mental Status: Awake (Alert & Oriented to Patient Baseline) Airway and Respiratory Function: Patent airway with normal (patient baseline) respiratory exam Cardiovascular Function: Hemodynamically Stable Hydration Status: Adequately Hydrated Nausea & Vomiting: No Nausea or Vomiting Pain: Pt. Denies Any Pain Peripheral Nerve Block: Patient did not receive a nerve block
[2022-05-26 10:35] VITALS: BP 133/79; PULSE 62; RESP 16; TEMPC 36.8; O2SAT 96
[2022-05-26 11:00] VITALS: BP 134/84; PULSE 61; RESP 16; TEMP 36.4; O2SAT 97
== END 2022-05-26 11:30 | disposition home or self-care (01) ==
PROVIDERS: PCP Family Medicine; Visit Provider Surgery
PROC: 0DJD8ZZ Inspection of Lower Intestinal Tract, Via Natural or Artificial Opening Endoscopic (ICD-10-PCS; CPT 45378; principal; 2022-05-26 11:30)
DX: Z12.11 Encounter for screening for malignant neoplasm of colon (principal); I10 Essential (primary) hypertension; E03.9 Hypothyroidism, unspecified; K59.00 Constipation, unspecified; K63.5 Polyp of colon; K64.0 First degree hemorrhoids
CPT/HCPCS: 45380; 88305

== ENCOUNTER → 2022-06-03 11:25 | Outpatient (BNVA) | payer OTHER, SELFPAY | PROVIDERS: PCP Family Medicine; Referring Provider Family Medicine; Visit Provider Student in an Organized Health Care Education/Training Program | DX: M25.562 Pain in left knee (principal) | CPT/HCPCS: 20610; 99214; J1040 ==

== ENCOUNTER 2022-06-09 02:06 | Outpatient (RCR) | payer OTHER, SELFPAY ==
[2021-12-27] VITALS: BP 134/86; PULSE 56; RESP 20; TEMP 36.6
[2022-06-09] VITALS (7 sets, daily range): BP systolic 115–160; BP diastolic 75–90; PULSE 54–96; RESP 17–18; TEMP 34.9–36.7; O2SAT 97–99
[2022-06-09] MEDS: Normal Saline Flush 10 ML SYR IV (09:20)
== END 2022-06-28 23:59 | disposition home or self-care (01) ==
LOC: INF 02:06
PROVIDERS: PCP Family Medicine; Visit Provider Nurse Practitioner Acute Care
DX: N13.5 Crossing vessel and stricture of ureter without hydronephrosis (principal)
CPT/HCPCS: 96365; 96366; J9312

== ENCOUNTER 2022-06-10 02:41 | Outpatient (CLI) | payer OTHER, SELFPAY ==
[2022-06-10 09:43] LABS: Abs Immature Grans 0.07 10^3/uL (0.0-0.06); Absolute Basophil Count 0.06 10^3/uL (0.0-0.2); Absolute Eosinophil Count 0.11 10^3/uL (0.0-0.7); Absolute Monocyte Count 0.35 10^3/uL (0.1-0.8); Absolute Neutrophil Count 4.34 10^3/uL (1.2-6.7); Basophils % 0.9; ESR 9 mm/hr (0-30); Eosinophils % 1.7; HCT 38.8 % (36.0-46.0); HGB 13.3 g/dL (11.2-15.7); Immature Grans % 1.1; Lymphocytes % 22.1; MCH 33.4 pg (27.0-33.0); MCHC 34.3 % (32.0-36.0); MCV 98 fL (80-95); MPV 9.4 fL (8.0-11.0); Monocytes % 5.5; Neutrophils % 68.7; Platelet Count 282 10^3/uL (130-400); RBC 3.98 10^6/uL (3.93-5.22); RDW 12.7 % (11.7-14.6); RDW-SD 45.8 fL; WBC 6.33 10^3/uL (4.4-10.8)
[2022-06-10 09:47] LABS: Bilirubin Negative (Negative); Blood Moderate (Negative); Clarity Clear (Clear); Glucose Negative (Negative); Ketones Negative (Negative); Leukocyte Esterase Small (Negative); Nitrite Negative (Negative); Urobilinogen 0.2 EU/dL (Up TO 0.2)
[2022-06-10 09:55] LABS: Bacteria Rare HPF (Negative); C & S Indicated? Yes; Casts Negative LPF (Negative); Crystals Negative HPF (Negative); Epithelial Cells Few HPF (Negative); Mucus Negative (Negative)
[2022-06-10 10:21] LABS: COMMENT (LAB VIEW ONLY) 90.51 mg/dL; Prot/Crea Ur Ratio 0.15
[2022-06-10 10:26] LABS: ALT 18 U/L (14-59); AST 14 U/L (15-37); Albumin 4.3 g/dL (3.4-5.0); Alkaline Phosphatase 66 U/L (46-116); Anion Gap 11.3 mmol/L (3-11); BUN 34 mg/dL (7-18); Bilirubin, Total 0.7 mg/dL (0.2-1.0); C-Reactive Protein 0.99 mg/dL (0.0-0.3); CO2 24.7 mmol/L (21.0-32.0); CREATININE 1.6 mg/dL (0.55-1.02); Calcium 9.1 mg/dL (8.5-10.1); Chloride 98 mmol/L (98-107); Estimated GFR 34.05 (mL/min/1.73m2); Glucose 98 mg/dL (74-106); Potassium 3.7 mmol/L (3.5-5.1); Sodium 134 mmol/L (136-145); Total Protein 7.9 g/dL (6.4-8.2)
[2022-06-10 11:32] LABS: Calculated LDL 149 mg/dL (<100); Cholesterol 262 mg/dL (<200); HDL Cholesterol 86 mg/dL (40-60); Triglyceride 136 mg/dL (<150)
[2022-06-11 10:22] LABS: IgA 154 mg/dL (85-499); IgG 784 mg/dL (610-1,616); IgM 56 mg/dL (35-242)
[2022-06-11 15:07] LABS: Albumin 63.1 % (55.8-66.1); Albumin g/dL 4.4 g/dL (3.6-5.2); Comment (See Note)
[2022-06-11 15:21] LABS: Immunotyping, Serum (See Note)
== END 2022-06-10 02:42 | disposition home or self-care (01) ==
LOC: LBO 02:41
PROVIDERS: PCP Family Medicine; Visit Provider Internal Medicine Rheumatology
DX: Z79.899 Other long term (current) drug therapy (principal); N13.5 Crossing vessel and stricture of ureter without hydronephrosis
CPT/HCPCS: 36415; 80053; 80061; 82784; 85652; 81003; 81015; 82565; 84156; 84165; 85025; 86140; 86320; 87086

== ENCOUNTER → 2022-09-06 08:56 | Outpatient (BNVA) | payer OTHER, SELFPAY | PROVIDERS: PCP Family Medicine; Referring Provider Family Medicine; Visit Provider Physician Assistant | DX: M17.12 Unilateral primary osteoarthritis, left knee (principal) | CPT/HCPCS: 20610; J1040 ==

== ENCOUNTER 2022-10-01 01:34 | Outpatient (CLI) | payer OTHER, SELFPAY ==
[2022-10-01 10:22] LABS: Anion Gap 7.9 mmol/L (3-11); BUN 26 mg/dL (7-18); CO2 29.1 mmol/L (21.0-32.0); CREATININE 1.5 mg/dL (0.55-1.02); Calcium 10.1 mg/dL (8.5-10.1); Chloride 102 mmol/L (98-107); Estimated GFR 36.57 (mL/min/1.73m2); Glucose 105 mg/dL (74-106); Sodium 139 mmol/L (136-145)
== END 2022-10-01 01:35 | disposition home or self-care (01) ==
LOC: LBO 01:34
PROVIDERS: PCP Family Medicine; Visit Provider Urology
DX: N13.5 Crossing vessel and stricture of ureter without hydronephrosis (principal)
CPT/HCPCS: 36415; 80048

== ENCOUNTER 2022-12-10 01:05 | Outpatient (RCR) | payer OTHER, SELFPAY ==
[2022-06-29 00:13] VITALS: BP 128/83; PULSE 76; RESP 17; TEMP 35.1
[2022-12-10] VITALS (7 sets, daily range): BP systolic 107–128; BP diastolic 72–81; PULSE 55–74; RESP 17; TEMP 36.1–36.4; O2SAT 96–98
[2022-12-10] MEDS: Normal Saline Flush 10 ML SYR IVP (09:05)
== END 2022-12-26 23:59 | disposition home or self-care (01) ==
LOC: INF 01:05
PROVIDERS: PCP Family Medicine; Visit Provider Nurse Practitioner Acute Care
DX: K68.9 Other disorders of retroperitoneum (principal)
CPT/HCPCS: 96365; 96366; 96413; 96415; J9312

== ENCOUNTER 2022-12-17 15:20 | Outpatient (CLI) | payer OTHER, SELFPAY ==
--- NOTE | 2022-12-17 15:22 | DI.RAD_ITS ---
Exam(s) XR CHEST 2V PA LATERAL EXAM: XR CHEST 2V PA LATERAL CLINICAL HISTORY: SOB R06.02 CHEST HEAVINESS R07.89. TECHNIQUE: 2D digital imaging was performed. COMPARISON: CR XR CHEST 2V PA LATERAL from 01/02/2020 FINDINGS: 2 views: Heart size is normal. The mediastinum is not widened. Lungs are clear. No infiltrates nor pleural effusions. IMPRESSION: No acute pulmonary findings. DATA REPOSITORY: RADIATION DOSE DELIVERED:
[2022-12-17 15:48] LABS: Abs Immature Grans 0.02 10^3/uL (0.0-0.06); Absolute Basophil Count 0.08 10^3/uL (0.0-0.2); Absolute Eosinophil Count 0.07 10^3/uL (0.0-0.7); Absolute Lymphocyte Count 1.69 10^3/uL (1.2-3.4); Absolute Monocyte Count 0.41 10^3/uL (0.1-0.8); Absolute Neutrophil Count 4.68 10^3/uL (1.2-6.7); Basophils % 1.2; HCT 40.4 % (36.0-46.0); HGB 13.5 g/dL (11.2-15.7); Immature Grans % 0.3; Lymphocytes % 24.3; MCH 32.5 pg (27.0-33.0); MCHC 33.4 % (32.0-36.0); MCV 97 fL (80-95); MPV 9.4 fL (8.0-11.0); Monocytes % 5.9; Neutrophils % 67.3; Platelet Count 314 10^3/uL (130-400); RBC 4.16 10^6/uL (3.93-5.22); RDW 12.3 % (11.7-14.6); RDW-SD 43.8 fL; WBC 6.95 10^3/uL (4.4-10.8)
[2022-12-17 15:52] LABS: ESR 15 mm/hr (0-30)
[2022-12-17 16:29] LABS: ALT 20 U/L (14-59); AST 18 U/L (15-37); Albumin 4.7 g/dL (3.4-5.0); Alkaline Phosphatase 70 U/L (46-116); Anion Gap 7.5 mmol/L (3-11); BUN 24 mg/dL (7-18); Bilirubin, Total 0.6 mg/dL (0.2-1.0); C-Reactive Protein 0.49 mg/dL (0.0-0.3); CO2 28.5 mmol/L (21.0-32.0); CREATININE 1.5 mg/dL (0.55-1.02); Calcium 10.6 mg/dL (8.5-10.1); Chloride 100 mmol/L (98-107); Creatine Kinase 122 U/L (26-192); Estimated GFR 36.57 (mL/min/1.73m2); Glucose 107 mg/dL (74-106); Magnesium 2.3 mg/dL (1.8-2.4); NT-proBNP 97 pg/mL (<300); Potassium 3.9 mmol/L (3.5-5.1); Sodium 136 mmol/L (136-145); TSH (W/Ref FT4) 3.82 uIU/mL (0.36-3.74); Total Protein 8.4 g/dL (6.4-8.2)
[2022-12-17 16:38] LABS: Bilirubin Negative (Negative); Blood Negative (Negative); Clarity Clear (Clear); Glucose Negative (Negative); Ketones Negative (Negative); Leukocyte Esterase Negative (Negative); Nitrite Negative (Negative); Urobilinogen 0.2 mg/dL (Up to 0.2)
[2022-12-17 16:40] LABS: Vitamin D 25 Total 60.7 ng/mL (30-100)
[2022-12-17 16:48] LABS: FREE T4 1.27 ng/dL (0.76-1.46)
[2022-12-17 16:53] LABS: Iron 80 ug/dL (50-170); Total Iron Binding Capacity 310 ug/dL (250-450); Transferrin Sat 26 % (15-50)
[2022-12-17 17:28] LABS: Ferritin 320 ng/mL (8-252); Vitamin B12 1635 pg/mL (193-986)
== END 2022-12-17 15:40 ==
LOC: DI 15:21
PROVIDERS: PCP Family Medicine; Visit Provider Nurse Practitioner Family
DX: M79.10 Myalgia, unspecified site (principal); R06.2 Wheezing; R07.89 Other chest pain
CPT/HCPCS: 36415; 80053; 82306; 82550; 85652; 71046; 81003; 82607; 82728; 83540; 83550; 83735; 83880; 84439; 84443; 85025; 86140

== ENCOUNTER 2023-01-26 02:34 | Outpatient (CLI) | payer OTHER, SELFPAY ==
--- NOTE | 2023-01-26 11:00 | DI.US_ITS ---
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 TECHNIQUE: Manning scale, color and spectral Doppler were used. COMPARISON: CT CT ABDOMEN PELVIS WO from 07/11/2020 US US RENAL from 07/16/2021 FINDINGS: Renal size in cm: Right: Status post right nephrectomy. Left: 12.2 cm in length. Parenchymal thickn ess normal. Echogenicity: Normal Hydronephrosis: Mild left hydronephrosis. Cyst or mass: No Nephrolithiasis: No Bladder:Normal Prevoid vol: 193 Postvoid vol: 0 IMPRESSION: Mild left hydronephrosis. DATA REPOSITORY:
== END 2023-01-26 02:54 ==
LOC: DI 02:34
PROVIDERS: PCP Family Medicine; Visit Provider Internal Medicine Rheumatology
DX: N13.30 Unspecified hydronephrosis (principal); M35.00 Sjogren syndrome, unspecified
CPT/HCPCS: 76770

== ENCOUNTER 2023-03-16 04:26 | Outpatient (CLI) | payer OTHER, SELFPAY ==
[2023-03-16 12:24] LABS: ESR 20 mm/hr (0-30)
[2023-03-16 12:25] LABS: HCT 39.8 % (36.0-46.0); HGB 13.7 g/dL (11.2-15.7); MCH 32.9 pg (27.0-33.0); MCHC 34.4 % (32.0-36.0); MCV 96 fL (80-95); MPV 9.8 fL (8.0-11.0); Platelet Count 274 10^3/uL (130-400); RBC 4.16 10^6/uL (3.93-5.22); RDW 12.2 % (11.7-14.6); RDW-SD 42.9 fL; WBC 6.15 10^3/uL (4.4-10.8)
[2023-03-16 13:41] LABS: ALT 15 U/L (14-59); AST 17 U/L (15-37); Albumin 4.3 g/dL (3.4-5.0); Alkaline Phosphatase 78 U/L (46-116); Anion Gap 11.1 mmol/L (3-11); BUN 27 mg/dL (7-18); Bilirubin, Total 0.4 mg/dL (0.2-1.0); CO2 25.9 mmol/L (21.0-32.0); CREATININE 1.3 mg/dL (0.55-1.02); Calcium 9.7 mg/dL (8.5-10.1); Calculated LDL 165 mg/dL (<100); Chloride 103 mmol/L (98-107); Cholesterol 266 mg/dL (<200); Estimated GFR 43.42 (mL/min/1.73m2); Glucose 98 mg/dL (74-106); HDL Cholesterol 74 mg/dL (40-60); Potassium 4.4 mmol/L (3.5-5.1); Sodium 140 mmol/L (136-145); TSH (W/Ref FT4) 2.44 uIU/mL (0.36-3.74); Total Protein 7.4 g/dL (6.4-8.2); Triglyceride 135 mg/dL (<150)
== END 2023-03-16 04:27 | disposition home or self-care (01) ==
PROVIDERS: PCP Family Medicine; Visit Provider Family Medicine
DX: Z00.00 Encounter for general adult medical examination without abnormal findings (principal); I10 Essential (primary) hypertension; D64.9 Anemia, unspecified; E03.9 Hypothyroidism, unspecified; E78.5 Hyperlipidemia, unspecified
CPT/HCPCS: 36415; 80053; 80061; 85027; 85652; 84443

== ENCOUNTER 2023-06-23 03:54 | Outpatient (RCR) | payer OTHER, SELFPAY ==
[2022-12-27] VITALS: BP 128/80; PULSE 62; RESP 17; TEMP 36.3
[2023-06-23] VITALS (7 sets, daily range): BP systolic 114–149; BP diastolic 75–90; PULSE 54–66; RESP 17–18; TEMP 35.6–36.2; O2SAT 97–99
[2023-06-23] MEDS: Normal Saline Flush 10 ML SYR IVP (09:18)
== END 2023-06-28 23:59 | disposition home or self-care (01) ==
LOC: INF 03:54
PROVIDERS: PCP Family Medicine; Visit Provider Nurse Practitioner Acute Care
DX: K68.2 Retroperitoneal fibrosis (principal)
CPT/HCPCS: 96365; 96366; J9312

== ENCOUNTER → 2023-07-11 01:20 | Outpatient (CLI) | payer OTHER, SELFPAY ==
--- NOTE | 2023-07-11 | DI.MAMMO_ITS ---
Exam(s) MG MAMMO SCREENING 60 MIN DUR EXAM: MG MAMMO SCREENING 60 MIN DUR CLINICAL HISTORY: SCREENING,Z12.31, PERS H/O IN-SITU NEOP,LASM Z86.00,HX RT MASTECTOMY,Z90.10. TECHNIQUE: Bilateral full field digital CC and MLO mammographic images were obtained with 3D tomosyn thesis and utilizing computer aided detection (CAD). COMPARISON: Prior mammograms were reviewed. Patient has had prior reconstruction surgery in the right breast FINDINGS: There has been no significant change in the appearance and distribution of the fibroglandular tissue which is again noted be predominately fatty.. There are no new spiculated masses nor malignant appearing microcalcification groups. Benign promine nt calcification medially on the right side is unchanged prior studies. Surgical clip in the right b reast again noted posteriorly. There is no significant architectural distortion nor skin thickening-retraction. IMPRESSION: Benign findings. No radiographic evidence of malignancy. BI-RADS Category 1 - Negative Breast Density - Category A - Almost entirely fatty Breast density Category C or D implies that the patient has dense breast tissue. Dense breast tissue can make it harder to find cancer on a mammogram. Dense breast tissue is also associated with an incr eased risk of breast cancer. This information about the result of the mammogram report was provided to the patient to raise their awareness. Use this report when you speak with the patient about their risks for breast cancer, which includes their family history. At that time, you may recommend additional screening tests (Ultrasoun d or MRI) as these tests may add significant information. A negative radiographic report should not delay biopsy if a dominant or clinically suspicious mass is present. Up to ten percent of cancers are not identified on mammography. A negative report may reinforce clinical impression. Adenosis and dense breasts may obscure an underlying neoplasm. False positive reports average 6 to 10%. Patient will receive a letter notifying them of these results.
== END ==
PROVIDERS: PCP Family Medicine; Visit Provider Family Medicine
DX: Z12.31 Encounter for screening mammogram for malignant neoplasm of breast (principal); Z86.000 Personal history of in-situ neoplasm of breast; Z90.11 Acquired absence of right breast and nipple
CPT/HCPCS: 77063; 77067

== ENCOUNTER 2023-12-23 14:48 | Outpatient (REF) | payer OTHER, SELFPAY | END 2023-12-23 14:49 | disposition home or self-care (01) | LOC: NCHCN 14:48 | PROVIDERS: PCP Family Medicine; Visit Provider Family Medicine | DX: R30.0 Dysuria (principal) | CPT/HCPCS: 87086 ==

== ENCOUNTER 2024-03-15 16:42 | Outpatient (REF) | payer OTHER, SELFPAY ==
[2024-03-15 17:34] LABS: Abs Immature Grans 0.02 10^3/uL (0.0-0.06); Absolute Basophil Count 0.06 10^3/uL (0.0-0.2); Absolute Eosinophil Count 0.06 10^3/uL (0.0-0.7); Absolute Lymphocyte Count 1.29 10^3/uL (1.2-3.4); Absolute Monocyte Count 0.39 10^3/uL (0.1-0.8); Basophils % 0.8 %; Eosinophils % 0.8 %; HCT 39.1 % (36.0-46.0); HGB 13.5 g/dL (11.2-15.7); Immature Grans % 0.3 %; Lymphocytes % 18.1 %; MCH 33.4 pg (27.0-33.0); MCHC 34.5 % (32.0-36.0); MCV 97 fL (80-95); MPV 10.6 fL (8.0-11.0); Monocytes % 5.5 %; Neutrophils % 74.5 %; Platelet Count 297 10^3/uL (130-400); RBC 4.04 10^6/uL (3.93-5.22); RDW 12.4 % (11.7-14.6); RDW-SD 44.2 fL; WBC 7.12 10^3/uL (4.4-10.8)
[2024-03-15 17:52] LABS: Iron 67 ug/dL (50-170); Total Iron Binding Capacity 281 ug/dL (250-450); Transferrin Sat 24 % (15-50)
[2024-03-15 18:01] LABS: ALT 21 U/L (14-59); AST 14 U/L (15-37); Albumin 4.2 g/dL (3.4-5.0); Alkaline Phosphatase 63 U/L (46-116); Anion Gap 11.9 mmol/L (3-11); BUN 24 mg/dL (7-18); Bilirubin, Total 0.44 mg/dL (0.2-1.0); CO2 23.1 mmol/L (21.0-32.0); CREATININE 1.3 mg/dL (0.55-1.02); Calcium 9.7 mg/dL (8.5-10.1); Chloride 101 mmol/L (98-107); Creatine Kinase 131 U/L (26-192); Estimated GFR 43.15 (mL/min/1.73m2); Glucose 96 mg/dL (74-106); Magnesium 1.9 mg/dL (1.8-2.4); Potassium 4.3 mmol/L (3.5-5.1); Sodium 136 mmol/L (136-145); TSH (W/Ref FT4) 3.15 uIU/mL (0.36-3.74); Total Protein 7.2 g/dL (6.4-8.2)
[2024-03-15 20:18] LABS: Ferritin 372 ng/mL (8-252)
== END 2024-03-15 16:43 | disposition home or self-care (01) ==
LOC: NCHCN 16:42
PROVIDERS: PCP Family Medicine; Visit Provider Family Medicine
DX: D64.9 Anemia, unspecified (principal); E03.9 Hypothyroidism, unspecified; M62.81 Muscle weakness (generalized); I10 Essential (primary) hypertension
CPT/HCPCS: 80053; 82550; 82728; 83540; 83550; 83735; 84443; 85025

== ENCOUNTER 2024-08-14 03:02 | Outpatient (CLI) | payer OTHER, SELFPAY ==
[2024-08-14 15:16] LABS: Abs Immature Grans 0.03 10^3/uL (0.0-0.06); Absolute Basophil Count 0.06 10^3/uL (0.0-0.2); Absolute Lymphocyte Count 1.58 10^3/uL (1.2-3.4); Absolute Monocyte Count 0.44 10^3/uL (0.1-0.8); Absolute Neutrophil Count 5.64 10^3/uL (1.2-6.7); Basophils % 0.8 %; Eosinophils % 1.3 %; HCT 37.4 % (36.0-46.0); Immature Grans % 0.4 %; Lymphocytes % 20.1 %; MCH 33.3 pg (27.0-33.0); MCHC 34.8 % (32.0-36.0); MCV 96 fL (80-95); MPV 9.9 fL (8.0-11.0); Monocytes % 5.6 %; Neutrophils % 71.8 %; Platelet Count 287 10^3/uL (130-400); RDW 12.8 % (11.7-14.6); RDW-SD 45.3 fL; WBC 7.85 10^3/uL (4.4-10.8)
[2024-08-14 15:23] LABS: ESR 16 mm/hr (0-30)
[2024-08-14 15:28] LABS: Bilirubin Negative (Negative); Blood Negative (Negative); Clarity Clear (Clear); Glucose Negative (Negative); Ketones Negative (Negative); Leukocyte Esterase Negative (Negative); Nitrite Negative (Negative); Specific Gravity <= 1.005 (1.005-1.025); Urobilinogen 0.2 mg/dL (Up to 0.2)
[2024-08-14 16:26] LABS: ALT 17 U/L (14-59); AST 16 U/L (15-37); Albumin 3.9 g/dL (3.4-5.0); Alkaline Phosphatase 79 U/L (46-116); Anion Gap 11.8 mmol/L (3-11); BUN 19 mg/dL (7-18); Bilirubin, Total 0.35 mg/dL (0.2-1.0); C-Reactive Protein 0.73 mg/dL (<or=0.5); CO2 25.2 mmol/L (21.0-32.0); CREATININE 1.5 mg/dL (0.55-1.02); Calcium 9.1 mg/dL (8.5-10.1); Chloride 103 mmol/L (98-107); Estimated GFR 36.34 (mL/min/1.73m2); Glucose 107 mg/dL (74-106); Potassium 3.6 mmol/L (3.5-5.1); Sodium 140 mmol/L (136-145); Total Protein 7.2 g/dL (6.4-8.2)
[2024-08-16 09:05] LABS: C3 Complement 136 mg/dL (81-157); C4 Complement 41 mg/dL (13-39)
== END 2024-08-14 03:03 | disposition home or self-care (01) ==
PROVIDERS: PCP Family Medicine; Visit Provider Internal Medicine Rheumatology
DX: N13.5 Crossing vessel and stricture of ureter without hydronephrosis (principal)
CPT/HCPCS: 36415; 80053; 85652; 81003; 85025; 86140; 86160

== ENCOUNTER → 2025-04-16 07:53 | Outpatient (BNVA) | payer MEDICARE, SELFPAY | PROVIDERS: PCP Family Medicine; Referring Provider Family Medicine; Visit Provider Podiatrist | DX: L84 Corns and callosities (principal); M21.6X2 Other acquired deformities of left foot; M67.02 Short Achilles tendon (acquired), left ankle; M76.71 Peroneal tendinitis, right leg; M77.41 Metatarsalgia, right foot; M79.671 Pain in right foot; M79.672 Pain in left foot; Z90.5 Acquired absence of kidney | CPT/HCPCS: 99214 ==

== ENCOUNTER → 2025-05-23 13:18 | Outpatient (BNVA) | payer MEDICARE, SELFPAY | PROVIDERS: PCP Family Medicine; Referring Provider Family Medicine; Visit Provider Podiatrist ==